=== PATIENT | female | born 1940 | race Caucasian/White ===

== ENCOUNTER 2016-06-17 12:13 | Inpatient (IN) | payer MEDICARE ==
[~2016-06-17] VITALS: Ht 167.6 cm; Wt 65.2 kg
[~2016-06-17 12:13] MED LIST: NOMED
--- NOTE | 2016-06-17 12:15 | ED.REPORT ---
HPI-Abd Pain F 40 and Over Date of Service Jun 17, 2016 ED Provider: History of Present Illness: lives at [facility] has dementia. Has been living on the independent side. Family is with her in the ER. Sent because of abd pain? observed holding right side. Unable to get hx from patient Nursing Notes Stated Complaint: ABDOMINAL PAIN Nursing Notes Reviewed: Yes Allergies: Coded Allergies: Sulfa (Sulfonamide Antibiotics) (Verified Allergy, Severe, hives upper body and face, 06/17/16) acetaminophen (Verified Allergy, Severe, 06/17/16) levofloxacin (Verified Allergy, Severe, mouth swelling, 06/17/16) quinidine (Verified Allergy, Intermediate, Hives, 06/17/16) Miscellaneous Medications No Historical Medication (No Historical Medication) Ea General Time Seen by MD: 12:14 Chief Complaint Abdominal pain Hx Obtained From: EMS Sudden in Onset?: No Past Medical History Past Medical History family denies breathing issues Denies: Asthma, Diabetes mellitus Review of Systems Basic Review of Systems Eyes: Vision NL, No discharge Skin: No bruising, No rash, No itch Psychiatric: Normal thought content Physical Exam Vital Signs Vital Signs (First) Date Time Temp Pulse Resp B/P Pulse Ox O2 Delivery O2 Flow Rate FiO2 06/17/16 12:37 36.2 98 22 144/88 90 Room Air Initial VS: Reviewed, Vital signs abnormal Head / Eyes: Atraumatic, Normocephalic, PERRL ENT: Mucous membranes moist, Conjunctiva normal, No scleral icterus Neck: Supple, Non-tender, Full range of motion Lymphatic: No lymphadenopathy Extremities: Vascular intact, Neuro intact, No swelling, No tenderness Skin: Warm, Dry, No cyanosis Neurologic: Alert, Oriented, Nonfocal Psychiatric: Mood/affect normal, Behavior normal, Normal thought content General/Constitutional: Awake, Alert, Well developed, Well hydrated, Well nourished, Cooperative, Not toxic appearing Appearance / Presentation: Positive: Frail Respiratory / Chest: Atraumatic, Breath sounds NL, Breath sounds = bilat, No respiratory distress Cardiovascular: Heart rate NL, Regular rhythm, Heart sounds NL, No gallop, No murmurs, No rubs, Cap refill not delayed Abdomen: Atraumatic, Soft, Non-tender, McBurney's non-tender Back: Atraumatic, Inspection NL, Full range of motion, Painless range of motion Interpretation & Diagnostics Interpretation & Diagnostics: x-ray shows bilateral ground glass, right greater than left Lab Results Interpretation Result Diagram: 06/17/16 1240 06/17/16 1240 Test 06/17/16 12:39 06/17/16 12:40 Urine Color Yellow (YELLOW) Urine Appearance Cloudy (CLEAR,HAZY) Urine pH 6.0 (5.0-8.0) Urine Specific [place] 1.020 (1.003-1.035) Urine Protein 300mg/dL (NEG,TRACE) Urine Glucose (UA) Negativemg/dL (NEGATIVE) Urine Ketones Negativemg/dL (NEGATIVE) Urine Occult Blood Large (NEGATIVE) Urine Nitrite Negative (NEGATIVE) Urine Bilirubin Negative (NEGATIVE) Urine Urobilinogen Normalmg/dL (NORMAL) Urine Leukocyte Esterase Large (NEGATIVE) Urine RBC 0-2/hpf (0-2) Urine WBC Packed/hpf (0-5) Urine Epithelial Cells Few/hpf (NONE-MOD) Urine Crystals None seen (NONE SEEN) Urine Bacteria Many/hpf (NONE-FEW) Urine Hyaline Casts None/lpf (NONE) Urine Granular Casts None seen (NONE SEEN) Urine Waxy Casts None seen (NONE SEEN) Urine Red Blood Cell Casts None seen (NONE SEEN) Urine White Blood Cell Casts None seen (NONE SEEN) Urine Mucus None seen (None Seen) Urine Trichomonas None seen (NONE SEEN) Urine Yeast None (NONE SEEN) Urinalysis Comment None Urine Culture Reflexed Indicated White Blood Count 18.3th/mm3 (3.8-10.1) Red Blood Count 4.75mil/mm3 (3.90-5.20) Hemoglobin 12.4g/dL (12.0-15.6) Hematocrit 38.0% (35.0-46.0) Mean Corpuscular Volume 80.0fL (81-100) Mean Corpuscular Hemoglobin 26.1pg (27.0-35.0) Mean Corpuscular Hemoglobin Concent 32.6% (32.0-37.0) Red Cell Distribution Width 14.0% (12.3-15.4) Platelet Count 267bil/L (150-400) Neutrophils (%) (Auto) 92.8% (40-74) Lymphocytes (%) (Auto) 2.6% (14-46) Monocytes (%) (Auto) 4.0% (4-12) Eosinophils (%) (Auto) 0% (0-5) Basophils (%) (Auto) 0.2% (0-3) Sodium Level 133mEq/L (134-144) Potassium Level 4.3mEq/L (3.5-5.2) Chloride Level 96mEq/L (97-108) Carbon Dioxide Level 20mmol/L (18-29) Blood Urea Nitrogen 21mg/dL (8-27) Creatinine 1.48mg/dL (0.57-1.00) Estimat Glomerular Filtration Rate 49mL/min (>59) Glucose Level 238mg/dL (60-99) Calcium Level 9.3mg/dL (8.5-10.1) Total Bilirubin 0.8mg/dL (0.0-1.2) Aspartate Amino Transf (AST/SGOT) 145U/L (0-50) Alanine Aminotransferase (ALT/SGPT) 37U/L (0-32) Alkaline Phosphatase 128U/L (25-165) Total Protein 7.7g/dL (6.4-8.4) Albumin 3.6g/dL (3.4-5.0) Lab Results Interpretation: urine indicates infection also Re-Eval/Medical Decision Med Decision/Clinical Course 75 year old female presents for evualation of change in behavior. Acute abd series show pneumonia and urine indicates a bladder infection. Awaiting word from POA to see if we can treat, yes she can be treated. No sign of any hernia or peritonotis Discharge & Departure Primary Impression: Pneumonia Additional Impression: UTI (urinary tract infection) Disposition: ADMITTED TO HOSPITAL Referrals: Dayanara Garcia (PCP) EDSupervising Provider for APC: Jhonatan Nguyen MD copies to: Dayanara Garcia Sue ARNP Jun 17, 2016 12:15
[2016-06-17] MEDS ORDERED: 0.9% Sodium Chloride 1,000 ML IV ONE (12:30)
[2016-06-17] MEDS ORDERED: Ketorolac 15 mg/mL Inj IVPUSH ONE (12:30)
[2016-06-17 12:37] VITALS: BP 144/88; PULSE 98; RESP 22; O2SAT 90
[2016-06-17 12:50] LABS: BASOPHILS % (AUTO) 0.2 % (0-3); EOSINOPHILS % (AUTO) 0 % (0-5); Mean Corpuscular Hemoglobin 26.1 pg (27.0-35.0); NEUTROPHILS % (AUTO) 92.8 % (40-74); Platelet Count 267 bil/L (150-400)
[2016-06-17 13:43] LABS: APPEARANCE,URINE CLOUDY (CLEAR,HAZY); COLOR,URINE YELLOW (YELLOW)
[2016-06-17 13:44] LABS: OCCULT BLOOD,URINE LARGE (NEGATIVE); UROBILINOGEN,URINE NORMAL (NORMAL)
[2016-06-17] MEDS ORDERED: cefTRIAXone Inj 1,000 MG in Dextrose 5% Minibag Plus 50 ML IV ONE (14:55)
[2016-06-17] MEDS ORDERED: Azithromycin Inj 500 MG in Dextrose 5% w/Vial Mate 250 ML IV ONE (14:55)
[2016-06-17] MEDS ORDERED: Ondansetron 2 mg/mL 2 mL Inj IVPUSH ONE (15:25)
[2016-06-17] MEDS ORDERED: Albuterol 2.5 mg/3 mL Inhalation Solution NEB PRN (16:10)
[2016-06-17] MEDS ORDERED: Polyethylene Glycol (PEG) 17 Gm Powder PO PRN (16:10)
[2016-06-17] MEDS ORDERED: Alum-Mag Hydrox-Simeth 30 mL Suspension PO PRN (16:10)
[2016-06-17] MEDS ORDERED: Insulin GLARgine 100 Unit/mL Syringe SUBQ ONE (16:15)
[2016-06-17] MEDS ORDERED: Glucose 40% Oral Gel 15 Gm Tube PO PRN (16:15)
[2016-06-17 17:09] VITALS: BP 102/59; PULSE 90; RESP 20; O2SAT 90
--- NOTE | 2016-06-17 17:15 | NUR ---
Admit Pt comes from ER in pain upper right quadrant. Pt moaning in pain MD aware. IV ABx running at this time. A&OX3. Confused at times and forgetful. Family at bedside. O2 NC 1-2L in ER. Plan to use CPOx to monitor oxygen. Care continues
[2016-06-17 17:29] VITALS: BP 101/67; PULSE 91; RESP 20; O2SAT 88
[2016-06-17] MEDS: 0.9% Sodium Chloride 1,000 ML IV SCH (17:32)
[2016-06-17] MEDS ORDERED: 0.9% Sodium Chloride 500 ML IV SCH (17:36)
[2016-06-17] MEDS: HYDROmorphone 0.5 mg/0.5 mL iSecure Syringe IVPUSH PRN ×2 (17:55→23:18)
[2016-06-17] MEDS: Insulin LISPRO 300 Unit/3 mL Inj SUBQ SCH ×2 (18:05→23:09)
[2016-06-17 18:32] VITALS: O2SAT 91
--- NOTE | 2016-06-17 18:57 | HP ---
[address] [address] HISTORY AND PHYSICAL PATIENT: JT JACINTO : 1940 MR#: [id number] ADMIT: 06/17/2016 JOB ID: [id number] PRIMARY CARE PROVIDER: JULIA Shields, soon to see Dr. Jed Carrillo. Patient admitted from ED, inpatient status, Blue Team. CHIEF COMPLAINT: Right upper quadrant pain, weakness, and cough. HISTORY OF PRESENT ILLNESS: This is a 75-year-old female who refuses all medications. She has dementia. She has been doing pretty well. Today, at [facility], patient was noted to be holding onto the wall and seemed to be kind of holding her stomach, seemed to be stumbling, seemed to be weak. Nurses took her blood pressure. It was 220/120, so they called 911 to the ED. Our ED physician called me and wants me to admit patient for urinary tract infection and pneumonia. UA is abnormal. I cannot elicit any symptoms from patient, however, but she is not reliable. She has had cough more than usual and does sound somewhat congested to family. Chest x-ray is read as pneumonia versus failure versus chronic interstitial changes. White count is 18 with a shift. Blood sugars 238. Creatinine is 1.48. Otherwise, patient has been doing pretty well. There have been no reports of diarrhea, fevers, chest pain, etc. COMPLETE REVIEW OF SYSTEMS: Complete review of systems obtained, pertinent positives in HPI above. Rest of review of systems are negative. PAST MEDICAL HISTORY: 1. Coronary artery disease, always treated medically. No interventions. 2. Hypertension. 3. Type 2 diabetes. 4. Cholecystectomy 2011. 5. Dementia. 6. History of colon polyps. MEDICATIONS: Patient has been refusing to take any medications for a while now. ALLERGIES: 1. SULFA. 2. TYLENOL. SOCIAL HISTORY: Lives at [facility], unassisted. Does not smoke. Consumes no alcohol. FAMILY HISTORY: Father of pneumonia. Mother had an ME at age 48. PHYSICAL EXAMINATION: This is a demented lady who is resting comfortably. Temperature 36.2, pulse 98, respiratory rate 22, blood pressure 144/88, O2 sats 98% on room air. Skin: Warm and dry. Mouth shows slightly poor hydration. Eyes: PERRLA. EOMs intact. Neck is supple. No JVD. Cardiac: Regular, with a systolic murmur. Lungs are coarse bilaterally with bilateral crackles. Abdomen has right upper quadrant discomfort to palpation, but otherwise is benign and soft. Extremities showed no edema. No CVA tenderness. No hypogastric tenderness. Cranial nerves are intact. I do not see any obvious focal neuro deficits. FINAL DIAGNOSES: 1. Right upper quadrant pain, present on admission. Active. The patient be started empirically on Rocephin, azithromycin for other causes below. Will keep her on clear liquids. Hydrate her and obtain an abdominal ultrasound. Will also get a lipase at this point in time and repeat a CMP tomorrow, noting the slightly elevated liver function tests. 2. Possible urinary tract infection present on admission. Active. Will start Rocephin and azithromycin. Cultures are pending. 3. Possible pneumonia, present on admission. Active. Azithromycin and Rocephin, respiratory virus PCR, sputum culture, blood cultures, and followup x-rays as needed. 4. Type 2 diabetes. Present on admission, uncontrolled. Will obtain hemoglobin A1c and provide correction dose insulin and diabetic diet. 5. Hypertension. Unless her blood pressure is neeru high, patient requires no treatment at this time. 6. Coronary artery disease. Again, patient has elected not to treat this with aspirin, statins, etc. 7. Chronic kidney disease, present on admission. Active. Baseline creatinine not known. Current creatinine 1.48. Will follow and review abdominal ultrasound. 8. Prior history of delirium in hospitals. Will start patient on Seroquel 6.25 bedtime. 9. Mild dehydration, 500 cc bolus, and NS at 100. 10. Goals of care. The patient initially did not want to come in the hospital. The patient's family understands the patient has significant dementia. The family has specifically asked me to admit patient, treat her conservatively with IV antibiotics, fluids and noninvasive diagnostic testing. If we have to restrain the patient a little bit to do this, that is okay. CODE STATUS: DNR, DNI status.
[2016-06-17 20:25] VITALS: PULSE 85; RESP 18; O2SAT 92
[2016-06-17] MEDS: Ondansetron 2 mg/mL 2 mL Inj IVPUSH PRN (23:30)
[2016-06-18] VITALS (8 sets, daily range): BP systolic 122–135; BP diastolic 74–88; PULSE 81–111; RESP 16–28; O2SAT 73–95
[2016-06-18] MEDS: 0.9% Sodium Chloride 1,000 ML IV SCH ×2 (03:48→15:31)
[2016-06-18] MEDS: HYDROmorphone 0.5 mg/0.5 mL iSecure Syringe IVPUSH PRN ×7 (04:32→21:53)
--- NOTE | 2016-06-18 05:08 | NUR ---
Mentation / pain / GI Pt has severe dementia, at times unable to cooperate with care; supportive family at bedside through night. Able to ambulate steadily but unable to understand situation which increases agitation. Intermittent pain well controlled with IV Dilaudid, pt becomes more agitated as pain increases; she will state that it hurts followed almost immediately that she is fine, calms down well after pain medication appears to provide comfort. One episode of sudden emesis, dark green; nausea resolved with Zofran. Infrequent bowel tones, passes small smear of stool. Frequent rounding for safety.
--- NOTE | 2016-06-18 05:29 | NUR ---
Respiratory O2 sats decreased but pt will not continue to wear oxygen nasal cannula. Will continue to replace and encourage as pt can tolerate.
--- NOTE | 2016-06-18 05:59 | DRSVH ---
PROCEDURE: X-RAY ACUTE ABDOMINAL SERIES ([id number]) INDICATIONS: abd pain TECHNIQUE: One view chest and two views of the abdomen were acquired. COMPARISON: None. FINDINGS: Surgical changes and devices: None. Chest: No focal consolidation however widespread ill-defined patchy groundglass opacities. Heart siz e is normal. No pleural effusions. No pneumoperitoneum. Abdomen: Bowel gas pattern is normal. No suspicious calcifications. Visualized solid organ contour s appear normal. Bones: No suspicious bony lesions. Lateral curvature of the spine IMPRESSION: Widespread bilateral patchy and groundglass opacities, which could represent chronic diffuse/intersti tial lung disease however the absence of comparison studies it would be difficult to exclude pulmonar y edema or atypical/viral infection. Therefore please correlate clinically. Dictated by: Ottoniel Alfred M.D. on 06/17/2016 at 13:31 Approved by: Ottoniel Alfred M.D. on 06/17/2016 at 13:34
[2016-06-18 06:32] LABS: BASOPHILS % (AUTO) 0.1 % (0-3); EOSINOPHILS % (AUTO) 0 % (0-5); MONOCYTES % (AUTO) 6.4 % (4-12); Mean Corpuscular Hemoglobin 25.9 pg (27.0-35.0); Mean Corpuscular Volume 80.9 fL (81-100); NEUTROPHILS % (AUTO) 85.9 % (40-74); Platelet Count 255 bil/L (150-400)
[2016-06-18] MEDS: Ondansetron 2 mg/mL 2 mL Inj IVPUSH PRN ×2 (06:35→21:52)
[2016-06-18] MEDS ORDERED: cefTRIAXone Inj 2,000 MG in Dextrose 5% Minibag Plus 50 ML IV SCH (08:30)
[2016-06-18] MEDS ORDERED: Azithromycin Inj 500 MG in Dextrose 5% w/Vial Mate 250 ML IV SCH (08:30)
[2016-06-18] MEDS: Insulin LISPRO 300 Unit/3 mL Inj SUBQ SCH ×4 (09:06→20:43)
--- NOTE | 2016-06-18 09:40 | DRSVH ---
PROCEDURE: US ABDOMEN INDICATIONS: ABD PAIN TECHNIQUE: Real-time scanning was performed of the abdominal and retroperitoneal organs, with image documentatio n. COMPARISON: [facility], CR, XR ABD ACUTE SERIES 3VW, 06/17/2016, 12:52. [facility], CT, ABDOMEN W&W/O CONTRAST, 11/06/2011, 16:25. [facility], CR, ERCP- BILIARY & PA NCREATIC, 11/09/2011, 16:00. [facility], US, ABDOMEN SONOGRAM, 11/10/2011, 15:21. FINDINGS: Liver length: 17.95 cm Gallbladder Wall Thickness: n.a CHD: 1.15 cm CBD: 1.14 cm Spleen length: 7.75 cm Right kidney length: 9.18 cm Left kidney length: 9.07 cm Aorta(Proximal): 1.98 cm Aorta(Mid): 2.12 cm Aorta(Distal): No visualized RCIA: Not visualized LCIA: Not visualized Liver: Liver is normal in size and homogeneous in echotexture. Gallbladder: Surgically removed Biliary ducts: Intrahepatic bile ducts are non-dilated. Extrahepatic bile duct caliber is dilated m easuring up to 11.5 cm. Normal is 6-7 mm or less in diameter, or 10 mm or less post-cholecystectomy . Pancreas: Visualized portions of the pancreas are sonographically normal. There is pancreatic duct d ilation measuring 6.7 mm. Spleen: Spleen is normal in size and homogeneous in echotexture. Kidneys: Kidneys are normal in size and echotexture. No hydronephrosis or nephrolithiasis. No donna d masses. Aorta: Visualized aorta is normal in caliber at less than 3 cm. Iliacs: Proximal common iliac arteries are obscured by overlying bowel gas. IVC: Intrahepatic inferior vena cava is patent. Miscellaneous: No free abdominal fluid. There is a small left pleural effusion. IMPRESSION: 1. Persistent prominent extrahepatic biliary duct measuring 11.5 cm. There is also pancreatic duct di lation measuring 6.7 mm. Recommend clinical correlation for biliary obstruction. If clinically indica jackson, MRCP is recommended for further evaluation. 2. Cholecystectomy. 3. Small left pleural effusion. Dictated by: Orlando Lowry M.D. on 06/18/2016 at 9:34 Approved by: Orlando Lowry M.D. on 06/18/2016 at 9:38
--- NOTE | 2016-06-18 11:21 | NUR ---
Pain/Mentation Morning Pain assessment reported R Upper quadrant abdominal pain at 8/10. Few minutes later pt reported that the pain was gone after changing position. No medication administered. Around 1100 pt family requested pain medication. Upon assessing pt, found pt was moaning and fidgeting in pain. Pt unable to report on pain at this time. Administered PRN IV Diluadid. Pain resolved as pt appears to be at ease and relaxed. Pt occasionally able to answer questions. Will give an appropriate answer, then a moment later make unrelated or confusing comment. Family reports this is not baseline. Family at bedside to assist with care and provide distraction.
--- NOTE | 2016-06-18 11:43 | NUR ---
Spoke with nurse at [facility] and patient is independent, this includes medications,bathing,eating and all ADLS.She paces and does not use any DME at base. But in the recent weeks has become increasing confused and states she does have dementia at base, has been needing consistent reminders to eat. She is eating cookies and is normally on a regular diet but has had a decline in appetite. Patient does not have any O2 needs at base. Nurse states they have started the conversation about getting patient to assisted living but nothing has changed yet. She let me know there are no beds in the memory care unit at this time. She is leaving message for Gena who is the supervisor commissary production and most likely patient will need bedside assessment before return. Waiting call back from Gena. Updated MEMS DEVICE SCIENTIST
--- NOTE | 2016-06-18 15:15 | NUR ---
Social Work -attempted initial assessment Pt is confused and not appropriate for assessment SW called daughter Madhavi [phone] to complete assessment. Left voicemail requesting call back. LYNN Mercado
--- NOTE | 2016-06-18 16:45 | PCM.PNMED ---
Subjective Date of Service Jun 18, 2016 Subjective pt denies any pain or discomfort. her daughters note that she was complaining of significant right sided abdominal pain just earlier Exam Vital Signs Vital Sign - Last Date Time Temp Pulse Resp B/P Pulse Ox O2 Delivery O2 Flow Rate FiO2 06/18/16 14:17 36.6 101 16 122/78 73 Room Air 06/17/16 18:32 2.00 Intake and Output 06/17/16 06/17/16 06/18/16 Cumulative From/Thru 15:00 23:00 07:00 06/17/16 12:37 - 06/18/16 06:31 Intake Total 500 ml 1560 ml 2060 ml Output Total 60 ml 300 ml 360 ml Balance -60 ml 500 ml 1260 ml 1700 ml Intake Oral 150 ml 150 ml IV Total 500 ml 1410 ml 1910 ml Output Urine Total 60 ml 200 ml 260 ml Emesis 100 ml 100 ml Exam pleasantly confused and disoriented x 3 General: Alert, Cooperative, No Acute Distress Head: Normal Eyes: Scleral Anicteric Nose: Mucous Membr Moist/[place] Mouth: Mucous Membr Moist/[place] Neck: Supple Chest & Lungs: Chest Wall Normal, Clear to auscultation & percussion Cardiovascular: Regular Rate/Rhythm Pulses: NL carotid, radial, femoral, DP, PT Abdomen: Non-tender, Non-distended, Normoactive bowel tones, Soft Extremities: No cyanosis/clubbing/edma bilat Neurological: Grossly Neurologically Intact, Normal Speech IVs and Medications Medications Reviewed: Medications were reviewed in detail Lab and Diagnostics Result Diagram: 06/18/1660406/18/16604 Additional Diagnostics Date of Service: 06/18/16 0901 PROCEDURE: US ABDOMEN IMPRESSION: 1. Persistent prominent extrahepatic biliary duct measuring 11.5 cm. There is also pancreatic duct dilation measuring 6.7 mm. Recommend clinical correlation for biliary obstruction. If clinically indicated, MRCP is recommended for further evaluation. 2. Cholecystectomy. 3. Small left pleural effusion. Dictated by: Orlando Lowry M.D. on 06/18/2016 at 9:34 Approved by: Orlando Lowry M.D. on 06/18/2016 at 9:38 Assessment & Plan 75 year-old female with history of advanced demential, Coronary artery disease, Hypertension, Type 2 diabetes, Cholecystectomy 2011 presenting with acute abdominal pain. # Acute right upper quadrant pain, present on admission. Active. - Abd U/S showing: " Persistent prominent extrahepatic biliary duct measuring 11.5 cm. There is also pancreatic duct dilation measuring" - was started empirically on Rocephin, azithromycin on admission - will change Abx to IV Zosyn for now - offered MRCP and GI Consult but patient's daughter/DPOA who is also a nurse does not want any further workup and notes that patient's wishes have been to be comfort care only. - Discussed in detail with her DPOA (abotu 30 minutes) and she plans to further discuss with the rest of her siblings regarding possible stopping of Abx as well. # Acute urinary tract infection, present on admission. Active. - Abx as noted above # Possible acute pneumonia vs chronic changes, present on admission. Active. - respiratory virus PCR negative, - f/u pending cultures - Abx as noted above # Type 2 diabetes. Present on admission, uncontrolled. - c/w ISS # History of Hypertension. stable - f/u # Coronary artery disease. - per admit notes patient has elected not to treat this # Chronic kidney disease, present on admission. Active. - Baseline creatinine not known. # Prior history of delirium in hospitals. stable. - c/w Seroquel 6.25 bedtime. # Goals of care - c/w Abx for now - no further invasive workup as per discussion with DPOA - palliative care consult in am Dispo: 1-2 days Time spent 40 min Brian Chao Jun 18, 2016 16:45
--- NOTE | 2016-06-18 16:50 | NUR ---
O2 needs Pt SpO2 in high 80's to high 90's while awake. When asleep/napping pt can desat down to mid 70's. CPOX monitoring in place. NC at 3L when sleeping as tolerated. Pt continues to pull off NC. Attempt to get blow-by O2. Pt family left for a break, Frequent rounding and bed alarm in place to maintain safety.
--- NOTE | 2016-06-18 16:52 | NUR ---
spiritual care: pt request pt pleasant, confused, described abd. pain, attended by 2 dtrs. pt engaged in prayer--reciting part of lords prayer and expressed gratitude.
[2016-06-19] VITALS (10 sets, daily range): BP systolic 143; BP diastolic 81; PULSE 93–105; RESP 16–22; O2SAT 81–95
[2016-06-19] MEDS: HYDROmorphone 0.5 mg/0.5 mL iSecure Syringe IVPUSH PRN ×4 (00:54→14:26)
[2016-06-19] MEDS: Piperacillin-Tazo 3.375 Gm Inj 3.375 GM in Dextrose 5% Minibag Plus 50 ML IV SCH ×2 (00:55→07:42)
--- NOTE | 2016-06-19 06:17 | NUR ---
Agitation/Pain/Nausea/SOB, O2 Titration/Low urine output Pt remains very confused,oriented self only,intermittent agitation, trying to strike nursing staff when staff helping reposition her,sitter with pt, frequently reorient pt,keep room quiet, gopal alarm on,check bladder:no urinary retention, offer oral fluids. Charge nurse Rafaela Mcgill aware, suggests no need call med at this time. Pt calm down and sleep after Dilaudid given for abdominal pain. Pt c/o Pt c/o abdominal pain, especially with activities, "hurt badly" at right mid abdomen, radiated to right upper quadrant, tenderness at this area, abdomen soft, BT active. Dilaudid 0.5mg prn x3, K-pad applied. Pain improved and pt settle down ands sleeping. Mild nausea at times, no vomitus, Zofran givenx1, nausea resolved. Some increased SOB at rest ,coarse lung sounds bilaterally, no wheezes or crackles, desat to 85 on O2 when agitated or with activities, titrate O 2 1-2.5l per Oxymask, keep SPO2 88-95% per RT recommendation. PEDIATRIC UROLOGIST monitoring, NEB called for tx,RT consider sob may cardiac related due to pt wt gain about 2.5 kg since admission 06/17, I>>O, low urine out put (only change briefx1,Bladder scan 337ml), Dr. morton notified above conditions at 0453, no order given. Sit pt high dukes position. SL after ABX completed. Pt SOB improved. Continue monitoring.
[2016-06-19] MEDS: Insulin LISPRO 300 Unit/3 mL Inj SUBQ SCH ×2 (08:03→12:00)
--- NOTE | 2016-06-19 11:35 | NUR ---
Palliative Care Palliative Care received verbal order from Dr Chao 06/19/16 to assist with goals of care. Patient is a 75 year old woman with dementia and CAD. She was admitted 06/17/16 for care of pneumonia and bladder infection. Family has expressed interest in comfort care. Daughter/DPOA is a nurse. Madhavi Kuhn (daughter/DPOA) [phone], Palliative Care to follow. Stacey Meyer
--- NOTE | 2016-06-19 11:51 | NUR ---
GREGG: Went into room and attempted to have conversation with patient. Friends were in room as well and directed me to ELYSSA Madhavi(Daughter). Patient has dementia at baseline and has been deteriorating. YARD SWITCHER will follow up with Madhavi as soon as possible.
--- NOTE | 2016-06-19 12:24 | NUR ---
Pain Patient is alert to self with intermittent confusion. Objective sign and symptoms of pain noted. Patient moaning and pointing to right side of her abdomen. PRN Dilaudid given as ordered with effective results. Very low appetite and decreased urine out put 175 cc so far. Encouraged PO hydration. Continuous on IV ABO as ordered. Stable oxygenation on 2L Nasal cannula r/t patient does not prefer Oxy mask. DPOA would like to speak to SS and notified SS. Blood sugar before breakfast and lunch 174, 156. Insulin given as ordered using sliding sale. Stable mood and no sign and symptoms of agitation noted. Patient up to BSC with no dyspnea or SOB. no sign and symptoms of cardiac distress noted. Sitter at bed side. [place] alarm for patient safety. Continue to monitor for pain, Oxygenation, pain, and safety.
--- NOTE | 2016-06-19 12:37 | NUR ---
Social Work-initial assessment: Data:See initial assessment. Pt is a 75 y/o female who was admitted on 06/17/16 for pneumonia. bladder infection, dementia per H&P. Pt's insurance is [employer] and PCP is Jed Lopez MD, although she has not met him yet. EMR Reviewed. Pt's readmission score is 1-no risk. AMY met with pt, daughter Madhavi [phone] to discuss discharge planning, SW role explained. Pt is confused and unable to communicate with SW. Pt's daughter states that to pt resides at [facility] unassisted and had been in the process of exploring hiring a private caregiver to assist pt. Pt has no HH history and SNF history with [facility]. They are unsure if [facility] would be there preference if SNF is needed again and would like to be provided choice list should SNF be the recommendation. Pt has completed DPOA/ advanced directive and it is on file with hospital. Pt has no nursing home care or VA benefits. Pt's family states that her condition has deteriorated recently and they recognize she needs a higher level of care. They are meeting with Palliative Care today to discuss plan of care. Pt's family to provide transport home at discharge. SW provided phone number and plan on white board in room. SW will continue to follow. Assessment:Pt who resides at [facility] and is requesting palliative care consult. Plan:Pt likely to discharge home with palliative care following. SW will continue to follow for needs. LYNN Mercado Addendum: 06/19/16 at 1400 by EMILY TUCKER Amended: Links added.
--- NOTE | 2016-06-19 13:49 | NUR ---
blood sugar Blood sugar 156 before lunch. Insulin held due to patient had only couple bites of meals.
[2016-06-19] MEDS ORDERED: Haloperidol 5 mg/mL Inj IVPUSH PRN (14:25)
[2016-06-19] MEDS ORDERED: HYDROmorphone 1 mg/mL Inj IVPUSH PRN ×2 (14:25→20:50)
--- NOTE | 2016-06-19 15:19 | NUR ---
Gave access and faxed facesheet to [facility] and [facility]. Called and spoke with Lisa inventory coordinator at [facility] she will review patient and if they can meet needs with start authorization tonight. [place] Private pay is second option and this would be with Hospice, Jess Treat deputy director of public works quoted 357.00 per day for pvt room and 319.00 per day for semi pvt. She also thinks they would be able to do two weeks at a time for end of life purposes. LYNN was present during conversation with patient's ELYSSA Hendrickson (Daughter)
--- NOTE | 2016-06-19 15:33 | NUR ---
Pain PRN Dilaudid given for abdominal pain as ordered with effective results amd PRN Haldol given as ordered for agitation and comfort. Family at bed side. Continue to monitor for pain, comfort and agitation. Palliative doctor Dr. Curry spoke to daughter DPOA and family. New orders for discontinue insulin sliding scale and IV ABO. Victoria alarm on for safety.
--- NOTE | 2016-06-19 16:47 | NUR ---
Palliative Care requested SW follow up with family regarding SNF options providing hospice care. Family stated there first choice as [facility] and their second Choice as [facility]. UR specialist sent referrals to both options. SW will follow up with family when SNF's respond. SW will continue to follow. LYNN Mercado
--- NOTE | 2016-06-19 17:51 | PCM.PNMED ---
Subjective Date of Service Jun 19, 2016 Subjective pt denies any pain or discomfort. Exam Vital Signs Vital Sign - Last Date Time Temp Pulse Resp B/P Pulse Ox O2 Delivery O2 Flow Rate FiO2 06/19/16 17:12 Supplement Oxygen 06/19/16 16:16 105 18 90 4.00 06/19/16 05:03 36.5 143/81 Intake and Output 06/18/16 06/18/16 06/19/16 Cumulative From/Thru 15:00 23:00 07:00 06/17/16 12:37 - 06/19/16 06:02 Intake Total 1538 ml 130 ml 3728 ml Output Total 360 ml Balance 1538 ml 130 ml 3368 ml Intake Oral 100 ml 50 ml 300 ml IV Total 1438 ml 80 ml 3428 ml Output Urine Total 260 ml Emesis 100 ml # Voids 1 2 3 # Bowel Movements 0 0 0 Exam pleasantly confused and disoriented x 3 General: Alert, Cooperative, No Acute Distress Head: Normal Eyes: Scleral Anicteric Nose: Mucous Membr Moist/[place] Mouth: Mucous Membr Moist/[place] Neck: Supple Chest & Lungs: Chest Wall Normal, Clear to auscultation bilat Cardiovascular: Regular Rate/Rhythm Pulses: NL carotid, radial, femoral, DP, PT Abdomen: Non-tender, Non-distended, Normoactive bowel tones, Soft Extremities: No cyanosis/clubbing/edema bilat Neurological: Grossly Neurologically Intact, Normal Speech IVs and Medications Medications Reviewed: Medications were reviewed in detail Lab and Diagnostics Result Diagram: 06/18/1660406/18/16 0605 Additional Diagnostics Date of Service: 06/18/16 0901 PROCEDURE: US ABDOMEN IMPRESSION: 1. Persistent prominent extrahepatic biliary duct measuring 11.5 cm. There is also pancreatic duct dilation measuring 6.7 mm. Recommend clinical correlation for biliary obstruction. If clinically indicated, MRCP is recommended for further evaluation. 2. Cholecystectomy. 3. Small left pleural effusion. Dictated by: Orlando Lowry M.D. on 06/18/2016 at 9:34 Approved by: Orlando Lowry M.D. on 06/18/2016 at 9:38 Assessment & Plan 75 year-old female with history of advanced demential, Coronary artery disease, Hypertension, Type 2 diabetes, Cholecystectomy 2011 presenting with acute abdominal pain. # Acute right upper quadrant pain, present on admission. Active. - Abd U/S showing: " Persistent prominent extrahepatic biliary duct measuring 11.5 cm. There is also pancreatic duct dilation measuring" - was started empirically on Rocephin, azithromycin on admission - changed Antibiotics to IV Zosyn for now - offered MRCP and GI Consult but patient's daughter/DPOA who is also a nurse does not want any further workup and notes that patient's wishes have been to be comfort care only. - Discussed in detail with her DPOA (on 06/18/16) and she plans to further discuss with the rest of her siblings regarding possible stopping of Abx as well. # Acute urinary tract infection, present on admission. Active. - Abx as noted above # Possible acute pneumonia vs chronic changes, present on admission. Active. - respiratory virus PCR negative, - f/u pending cultures - Abx as noted above # Type 2 diabetes. Present on admission, uncontrolled. - c/w ISS # History of Hypertension. stable - f/u # Coronary artery disease. - per admit notes patient has elected not to treat this # Chronic kidney disease, present on admission. Active. - Baseline creatinine not known. # Prior history of delirium in hospitals. stable. - c/w Seroquel 6.25 bedtime. # Goals of care - c/w Abx for now - no further invasive workup as per discussion with DPOA - palliative care consulted. will f/u w/ recs Dispo: 1-2 days pending goals of care VTE Mechanical Devices: Intermittant Pneumatic CD Resuscitation Status: DNR/DNI:Do Not Resuscitate/Intubate Brian Chao Jun 19, 2016 17:51
--- NOTE | 2016-06-19 18:38 | PCM.CONPAL ---
Date of Service Jun 19, 2016 Date of Hospital Admission: Jun 17, 2016 at 15:46 Date of Palliative Consult: Jun 19, 2016 Requesting Provider: Brian Chao Reason Palliative Care Consult: Goals of Care Discussion, Hospice Referral & Discussion Hospital Unit @time of consult: Medical/Pediatric Care Palliative Care Recommendation Summary of palliative recommendations: -Symptom management (Pain/other) Presumed intraabdominal process causing infection-etiology may be stone but family does not want intervention. Dementia with some agitation-goal is comfort Pain-evident with her furrowing her brow etc-meds ordered.Counselled family. Hx of ETOH-may have fair tolerance of meds. Nonessential meds d/filiberto. [facility]- comfort only Hospice referral placed via CM Madhavi requests hospice if she survives to be discharged --possibly to [facility]. CM notified. She was on the indep side of [place] -DPOA/Advanced Directives/POLST-DPOAHC is Madhavi. She has paperwork at her mother' s apt. POLST- will want to complete this to reflect DNR/comfort-she has one from 2014 with DNR/limited but with aim for comfort. -Family/emotional support-very strong cohesive family -Spiritual support-she has been seen by bat lathe operator. Problems: End of Life Preferences comfort care Disposition Hopefully will be able to get back to [place]. Resuscitation Status Resuscitation Status: DNR/DNI:Do Not Resuscitate/Intubate POLST Updates/Changes Artificially Admin Nutrition: No Artifical Nutrition by Tube POLST Discussed with: Health Care Agent (DPOAHC) . Advanced Care Planning Address: Comfort care Pain: Moderate Symptom management: Agitation, Pain, Delirium Pt History History of Present Illness PALLIATIVE CARE CONSULTATION: requesting provider:Dr. Alvarado Reason: [facility], sx management 75 yo patient who has been at [facility] on the unassisted side with the help of her daughter Mary for a few years. She has had a rather rapid decline in her mentation and physical health in the past 3 months. Her hx is gleaned from charts and from her 2 daughters Mary and Madhavi. Patient with long hx of ETOH abuse with cessation of drinking for about 15 yrs starting 23 yrs ago. Family started noticing memory problems about 15 yrs ago, preventing her from driving 10 yrs ago because she would get lost. She needed more assistance and had been living with Mary but over the past 5 yrs became more verbally abusive. They moved her into [place] still with Mary assisting but also having caregivers for bath assist etc. She has progressively deteriorated, declining showers, cleaning self, giving clothes away to the point she has none left for changing etc. She has had RUQ abdominal pain for years- had a lap don in 2011 with note of cirrhotic liver and continued to complain of abd pain since. She had a worsening of this pain which prompted her hospitalization. She has refused most interventions up until now and has asked her daughter to "just let me go". She has a POLST completed DNR. She was started on IV fluids and antibiotics but with the question of possible choledocolithiasis-the family requested no further treatment. She has numbers looking like worsening infection -WBC 18K increasing procalcitonin and CR starting at 1.48 and now 1.79. Family asking for assistance to review GOC Past Medical History Significant PMH Noted: Anx-Depression CAD DM2 Lumbar stenosis HTN lap don 2011 Social History Occupation: retired, caregiver/homemaker Family Members Issues: 4 children- Madhavi, Mary, Zhou and Laron Social Support: primarily Mary daughter Living Situation: [place] Spiritual Support Spiritual Support believes in God but not yarsani Responsive Patient Symptoms Nausea: Moderate Anorexia: Moderate Shortness of Breath: Mild Delirium agitation Palliative Performance Scale PPS Patient Status: Baseline PPS Ambulation: Full PPS Activity: Unable to do any work PPS Self-Care: Occasional assistance necessary PPS Intake: Normal or reduced PPS Conscious Level: Full or drowsey, +/- confusion Performance Scale: 20% Allergy Allergies Reviewed: Yes Medications Current Medications: Current Medications Ceftriaxone Sodium 2000 mg/ Dextrose/Water 50 ml @ 100 mls/hr Q24 IV Last administered on 06/18/16 09:06; Admin Dose 100 MLS/HR; Start 06/18/16 at 08:30 ; Stop 06/18/16 at 17:01; Status DC Azithromycin/ Dextrose/Water 250 ml @ 250 mls/hr Q24 IV Last administered on 10:17; Admin Dose 250 MLS/HR; Start 06/18/16 at 08:30; Stop 06/18/16 at 17:01; Status DC Quetiapine Fumarate 6.25 mg HS PO Last administered on 06/18/16 20:30; Admin Dose 6.25 MG; Start 06/17/16 at 21:00 Ondansetron HCl 4 mg 4 mg Q4H PRN IVPUSH Last administered on 06/18/16 21:52; Admin Dose 4 MG; Start 06/17/16 at 23:30 Piperacillin Sod/ Tazobactam Sod/ Dextrose/Water 50 ml @ 12.5 mls/hr Q8 IV Last administered on 06/19/16 07:42; Admin Dose 12.5 MLS/HR; Start 06/19/16 at 00:30; Stop 06/19/16 at 14:29; Status DC Haloperidol Lactate for comfort med Q4H PRN IVPUSH Last administered on 15:28; Admin Dose 1 MG; Start 06/19/16 at 14:25 Hydromorphone HCl comfort med Q4H PRN IVPUSH; Start 06/19/16 at 14:25 No Active Prescriptions or Reported Meds Objective Findings Exam Vital Sign - Last Date Time Temp Pulse Resp B/P Pulse Ox O2 Delivery O2 Flow Rate FiO2 06/19/16 17:12 Supplement Oxygen 06/19/16 16:16 105 18 90 4.00 06/19/16 05:03 36.5 143/81 Intake and Output 06/18/16 06/18/16 06/19/16 Cumulative From/Thru 15:00 23:00 07:00 06/17/16 12:37 - 06/19/16 06:02 Intake Total 1538 ml 130 ml 3728 ml Output Total 360 ml Balance 1538 ml 130 ml 3368 ml Intake Oral 100 ml 50 ml 300 ml IV Total 1438 ml 80 ml 3428 ml Output Urine Total 260 ml Emesis 100 ml # Voids 1 2 3 # Bowel Movements 0 0 0 General: Minimally responsive HEENT: EOMI, Scleral Anicteric, Mucous Membranes Dry Heart: Tachycardia Lungs: Diminished Abdomen: Tenderness to Palpation (diffusely tender but more so L upper and lower), Distended, Other Neuro: Other (mostly asleep but when awake and agitated she can prop herself up ) Lab/Diagnostics Lab and Imaging results reviewed in detail in EMR. Patient/Family Conference Members Present Family Members Present Madhavi and Emmett Medical Team Members Present? [facility] Discussion/Goals of Care Discussion FAMILY UNDERSTANDING OF DISEASE: Madhavi is an RN by training and is the spokesperson. She also has DPOAHC.. She states the 4 children are all in agreement that goal is comfort and that they would like withdrawal of noncomfort treatments and meds. She states they feels they are speaking for their mother in her wish to just let her go. They identify her last 3-6 months or more as poor QOL. They understand the rationale of stopping IVs etc. DISEASE PROGRESSION/EVIDENCE OF DECLINE: SYMPTOM BURDEN: GOALS: Comfort for EOL HOPES/WORRIES: Mary having been her caregiver is the one who is having the harder time knowing she will feel relief and that causes her a sense of guilt. She has insight into this and her sister is very supportive of her. Time spent Total time 50 minutes; >50% face to face with patient and/or family, providing counselling regarding plans and recommendations, and in care coordination with his/her medical teams. I also spent an additional 25 minutes counseling for advanced care planning with the patient/the patients family/the surrogate decision maker. copies to: Jed Carrillo Deborah A MD Jun 19, 2016 18:38
[2016-06-20 03:13] VITALS: BP 154/96; PULSE 97; RESP 14; O2SAT 93
--- NOTE | 2016-06-20 07:23 | NUR ---
Pain/confusion Pt was in quite a bit of pain at beginning of shift, complaining of side pain and holding her right side. Md was consulted and ordered increase dose of pain medication. Medication administered with good relief of pain. Pt also confused and some of what she said is non-sensical to situation.
--- NOTE | 2016-06-20 10:43 | NUR ---
LOC Patient alert and confused. Patient was restless this morning repeatedly removing oxygen. Patient was explained she needed the oxygen on. Patient refused for nurse to listen to lungs. Patient was talking gibberish and not making sense this morning. Patient would say she needed to void and when staff went to assist patient to use BSC and patient refused saying she did not have to void. Patient continues to have 1:1 sitter at bedside for safety.
--- NOTE | 2016-06-20 10:53 | PCM.PALLBR ---
Palliative Care Recommendation Summary of palliative recommendations: Counseling: Today Dr. George counseled daughters Mary and Madhavi on the following : right now she is in a very calm pleasant state with minimal pain. Hopefully, she will continue without pain. 1. In my clinical opinion, pt may in 2-3 days, and I would not be surprised if she sooner. However, she is still drinking sips of water, has no apnea (which I explained to family), has no mottling, and this argues against a overnight. I think she would likely do well if transferred to another location outside the hospital. The transferring process might be a little disruptive for her, but I think she would likely settle in at the new location quickly. 2. I suspect pt is quietly, calmly hallucinating--which does not need medical intervention until she were to become agitated or frightened of what she sees. For hallucinations that are frightening: start 1mg Haldol intensol liquid po q 3 hours as needed. 3. For pain: start oxycodone concentrated liquid 5mg po q 3 hours as needed. 4. The haldol can also be used for agitation not related to hallucinations or for nausea or vomiting. 5. Dr. George signed a comfort order set to remove meds not essential for her care, stop labs, and stop other interventions that might disturb her rest or comfort. Family seems to understand this counseling and is interested in a possible transfer. Dr. George asked Ms. Stern, our licensed master social worker, to communicate this to case management. Goals: Presumed intraabdominal process causing infection-etiology may be stone, but family does not want intervention. They want comfort care Per Dr Curry's 06/19 note: Daughter Madhavi requested hospice if she survives to be discharged --possibly to [facility]. CM notified. Patient was on the indep side of [place] DPOA/Advanced Directives/POLST-DPOAHC is Madhavi. She has paperwork at her mother's apt. POLST- will want to complete this to reflect DNR/comfort-she has one dated 2013 with DNR/limited but with aim for comfort. Family/emotional support-very strong cohesive family Spiritual support-she has been seen by sheet layer. Problems: End of Life Preferences comfort care Disposition Hopefully will be able to get back to [place]. Resuscitation Status Resuscitation Status: DNR/DNI:Do Not Resuscitate/Intubate POLST Updates/Changes Artificially Admin Nutrition: No Artifical Nutrition by Tube POLST Discussed with: Health Care Agent (DPOAHC) . Advanced Care Planning Address: POLST, Comfort care Pain: Mild Symptom management: Delirium Total time 35 minutes; >50% face to face with patient and/or family, providing counselling regarding plans and recommendations, and in care coordination with his/her medical teams. I also spent an additional 30 minutes counseling for advanced care planning with the patient/the patients family/the surrogate decision maker. Palliative Brief Note Date of Service Jun 20, 2016 . Palliative Care Consult requested by: Dr. Alvarado Reason: GOC, sx management Patient Identification: Mrs. Cisse is a 75 yo patient admitted for acute on chronic abdominal pain on 06/17. The patient has been at [place] on the unassisted side with the help of her daughter Mary for a few years. She has had a rather rapid decline in her mentation and physical health in the past 3 months. Her hx is gleaned from charts and from her 2 daughters Mary and Madhavi. Past medical history: Significant for a long hx of ETOH abuse with cessation of drinking for about 23 yrs ago. Family started noticing memory problems about 15 yrs ago, preventing her from driving 10 yrs ago because she would get lost. She needed more assistance and had been living with Mary but over the past 5 yrs became more verbally abusive. They moved her into [place] with Mary assisting but also having caregivers for bath assist etc. She has progressively deteriorated, declining showers, cleaning self, giving clothes away to the point she has none left for changing etc. She has had RUQ abdominal pain for years; and had a lap don in 2011 with note of cirrhotic liver and continued to complain of abd pain since. Hospital Course: She refused most interventions up until this admission. She has had serum tests suggestive of worsening infection-WBC 18K increasing procalcitonin and CR starting at 1.48 and now 1.79. She was started on IVFs and antibiotics for question of choledocolithiasis, but subsequently has asked her daughter to "just let me go". She has a POLST completed DNR. During discussion with Dr. Curry 06/19, the family requested no further antibiotic treatment. Dr. George is following up today and has been asked to assess and possibly start comfort care order set for patient. Family would like her to be comfortable and pt was able to state 06/[address] Curry that she would like hospice, if she survives to be discharged. On rounding today, the patient was sleeping quietly, breathing regularly, and woke up spontaneously while Dr. George interviewed daughters Mary and Madhavi. On exam: She is somewhat confused, but speaks in full sentences (words are sometimes slurred) and asks for water. She drinks through a straw, while daughter holds the glass. She does not choke from the drinking. General Appearance: thin, white hair, pale, calm and inattentive, but will respond to gentle, simple questions. HEENT: normal head and neck, pupils pinpoint, seems to be listening to others and looking around the room at something higher on wolf and sides of room ( actively hallucinating) while Dr. George and daughters observe her. Still able to answer some questions as she does this. She reports to us that she is going to be with Kyle tomorrow (Kyle is her who has ). Daughters report that she is also talking to her mother ( who when patient was 13 years old). Lungs: clear Heart: S1, S2, rrr, no murmur appreciated Abdomen: soft, distended, active bowel sounds in all 4 quadrants, slight tenderness over epigastric area (pt winces slightly, but does not cry out, almost seems to ignore my examination hand as she looks around the room) Extremities: no edema, dry, no mottling observed. Jammie George MD Jun 20, 2016 10:53
--- NOTE | 2016-06-20 11:03 | NUR ---
[facility] can accept patient with pending authorization. Spoke with [facility] and he is starting the authorization. They would need to have all medications to PO. [facility] can also accept patient and this would be private pay with [facility]osp[facility] Updated POST TENSIONING IRONWORKER
[2016-06-20] MEDS ORDERED: Artificial Tears 15 mL Ophthalmic Solution AFFECT_EYE PRN (11:15)
[2016-06-20] MEDS ORDERED: Haloperidol 2 mg/mL 5 mL Oral Conc Liquid PO PRN (11:15)
[2016-06-20] MEDS ORDERED: oxyCODONE 20 mg/mL Oral Concentration PO PRN ×3 (11:20→16:45)
--- NOTE | 2016-06-20 12:10 | NUR ---
Palliative care note D/A: Case discussed in PC and dispo rounds. Discussed with Mary BAILEY and Eran from . They indicate that family has preference for [facility]-where pt would be able to go as skilled under comfort care and/or JS-pvt pay with [facility]. Eran has left message for staff at [facility]. Family has indicated that they do not want [facility] info visit with but have also indicated to Dr. George that they believe that they had an info visit on 06/19/16. Phone call to Selena at [facility] reveals that family has not had info visit. Case discussed with PC provider. P: Palliative care to follow. Nai ZENDEJAS, CCM
[2016-06-20 13:44] VITALS: BP 144/104; PULSE 98; RESP 24; O2SAT 80
--- NOTE | 2016-06-20 14:49 | PCM.PNMED ---
Subjective Date of Service Jun 20, 2016 Subjective pt denies any pain or discomfort. Exam Vital Signs Vital Sign - Last Date Time Temp Pulse Resp B/P Pulse Ox O2 Delivery O2 Flow Rate FiO2 06/20/16 13:44 37.1 98 24 144/104 80 Room Air 06/20/16 03:13 4.00 Intake and Output 06/19/16 06/19/16 06/20/16 Cumulative From/Thru 15:00 23:00 07:00 06/17/16 12:37 - 06/20/16 06:19 Intake Total 62 ml 400 ml 4190 ml Output Total 525 ml 400 ml 1285 ml Balance 62 ml -525 ml 0 ml 2905 ml Intake Oral 400 ml 700 ml IV Total 62 ml 3490 ml Output Urine Total 525 ml 400 ml 1185 ml Emesis 100 ml # Voids 3 # Bowel Movements 0 0 0 Exam pleasantly confused and disoriented x 3 General: Alert, Cooperative, No Acute Distress Head: Normal Eyes: Scleral Anicteric Nose: Mucous Membr Moist/[place] Mouth: Mucous Membr Moist/[place] Full exam deferred due to patient being comfort care only now. IVs and Medications Medications Reviewed: Medications were reviewed in detail Lab and Diagnostics Result Diagram: 06/18/1660406/18/16 06 Additional Diagnostics Date of Service: 06/18/16 0901 PROCEDURE: US ABDOMEN IMPRESSION: 1. Persistent prominent extrahepatic biliary duct measuring 11.5 cm. There is also pancreatic duct dilation measuring 6.7 mm. Recommend clinical correlation for biliary obstruction. If clinically indicated, MRCP is recommended for further evaluation. 2. Cholecystectomy. 3. Small left pleural effusion. Dictated by: Orlando Lowry M.D. on 06/18/2016 at 9:34 Approved by: Orlando Lowry M.D. on 06/18/2016 at 9:38 Assessment & Plan 75 year-old female with history of advanced demential, Coronary artery disease, Hypertension, Type 2 diabetes, Cholecystectomy 2011 presenting with acute abdominal pain. # Acute right upper quadrant pain, present on admission. Resolved - Abd U/S showing: " Persistent prominent extrahepatic biliary duct measuring 11.5 cm. There is also pancreatic duct dilation measuring" - was started empirically on Rocephin, azithromycin on admission - changed Antibiotics to IV Zosyn but then stopped on 06/19/16 per palliative care and discussion with patient's family and DPOA. - offered MRCP and GI Consult but patient's daughter/DPOA who is also a nurse does not want any further workup and notes that patient's wishes have been to be comfort care only. # Acute urinary tract infection, present on admission. Active. - Abx as noted above # Possible acute pneumonia vs chronic changes, present on admission. Active. - respiratory virus PCR negative, - currently having acute hypoxic respiratory failure, not present on admission. # Type 2 diabetes. Present on admission, uncontrolled. - continue with supportive care # History of Hypertension. stable # Coronary artery disease. - per admit notes patient has elected not to treat this # Chronic kidney disease, present on admission. Active. - Baseline creatinine not known. # Prior history of delirium in hospitals. stable. - continue with Seroquel # Goals of care - appreciate palliative care consult. will followup with recommendations. - patient transitioning to comfort care only Dispo: 1-2 days pending patient's clinical course as she transitions to comfort care only and off of further antibiotic treatment. VTE Mechanical Devices: Intermittant Pneumatic CD Resuscitation Status: DNR/DNI:Do Not Resuscitate/Intubate Brian Chao Jun 20, 2016 14:49
--- NOTE | 2016-06-20 15:47 | NUR ---
spiritual care: follow up conversation with pt's dtr chepe as she reflected on process, mother's condition, grateful, reflective tone. Addendum: 06/20/16 at 1719 by NIRAJ MILLER CM provided written resources as family gathers around pt.
[2016-06-20] MEDS: oxyCODONE 20 mg/mL Oral Concentration PO PRN ×2 (17:01→20:42)
[2016-06-21] MEDS: oxyCODONE 20 mg/mL Oral Concentration PO PRN ×2 (02:49→05:49)
--- NOTE | 2016-06-21 09:09 | NUR ---
Spoke with Zia at [facility] and he sent updated clinicals to [facility] this morning and is expecting to have answer today whether patient is authorized or not.
--- NOTE | 2016-06-21 09:11 | NUR ---
Palliative care note D/A: Case discussed in PC rounds. CM pursuing either [facility] on skilled path with [facility] or [facility] pvt pay with [facility] under Medicare benefit. Phone call to Selena at [facility] to determine ability to provide info visit, if needed. Larissa is back at [facility]. Possible availability today at 1300 for info visit. Selena to discuss with her team and call this worker with potential availability for today and tomorrow ( 06/21/16 and 06/22/16). She is also penciling pt in for open visit on Saturday06/24/16 as earliest available open, if needed. This worker to cancel above if pt is approved for [facility] on skilled comfort care path. P: Palliative care to follow as needed. Nai GORDILLOSW, [facility] Addendum: 06/21/16 at 1531 by TERRY STEELE PC note amendment Case discussed this am with PC team. Dr. George feels that pt could be transferred from hospital. Also discussed with Mary BAILEY who notes that [facility] has declined for skilled comfort care. Discuss with Selena at [facility] who is able to arrange for 1300 info visit for today. Discuss with pt kiki Hendrickson who agrees. Discuss again with Larissa from [facility] who notes that family has signed on to [facility]. Per Mary, understand that family is wishing for consideration of dc to either [facility], private pay or return to [place], both with W. Dr. George has indicated that pt could dc prior to day of [facility] open. Have left message for Mary BAILEY dcp that pt family has elected to sign on to [facility]. P: Palliative care to follow. Nai ZENDEJAS CCM Addendum: 06/21/16 at 1547 by TERRY STEELE Palliative care note D/A: Phone call from Selena at [facility]. She asks for this worker to communicate if [place] accepts pt as will need to arrange for equipment delivery. Case discussed with Mary who does not have an answer yet from [facility]. This worker attempts to discuss with family but they are not in the room currently. Ms left for Mary. P: Palliative care to follow. Nai ZENDEJAS [facility]
--- NOTE | 2016-06-21 09:12 | NUR ---
GREGG: Spoke with ENGINEERING SYSTEMS ANALYST and she will follow up via phone with daughter Madhavi who is the DPOA
[2016-06-21] MEDS ORDERED: oxyCODONE 20 mg/mL Oral Concentration PO PRN (10:00)
--- NOTE | 2016-06-21 10:29 | PCM.PALLBR ---
Palliative Care Recommendation Summary of palliative recommendations: Assessment: Patient is likely going to within a week or so, but has not entered a phase of "actively dying." She is still conscious, somewhat verbal. Apparently drank liquids this morning, as these are on her bedside table and look fresh. 1. In my clinical opinion, pt may in a week or so, and I would not be surprised if she sooner. However, she is still drinking sips of water, has no apnea, has no mottling, and this argues against a in the next 48 hours. I think she would likely do well if transferred to another location outside the hospital. The transferring process might be a little disruptive for her, but I think she would likely settle in at the new location quickly. 2. On 06/20, I observed that she was quietly, calmly hallucinating--which does not need medical intervention until she were to become agitated or frightened of what she sees. For hallucinations that are frightening: start 1mg Haldol intensol liquid po q 3 hours as needed. 3. For pain: start oxycodone concentrated liquid 5-10 mg po q 1 hour as needed. 5mg for mild to moderate pain/10mg for severe pain. Because pt likely to go to a facility, I am adding scheduled 5mg q 6 hours around the clock, so pt's pain will be assessed by nursing team q 6 hours. 4. The haldol can also be used for agitation not related to hallucinations or for nausea or vomiting. 5. Continue comfort care as ordered. 06/21: No family in room. I have spoken to Attending Dr. Chao and CM at discharge rounds today to give my assessment. I believe she can be safely transferred out of hospital today, if bed is available per CM plan. I have discussed symptoms management plan at end of life with Dr. Caho and he knows which medications must be on discharge list for comfort. 06/20: counseling (see my note) the family seems to understand this counseling and is interested in a possible transfer. Dr. George asked Ms. Stern, our PC social professionals, to communicate this to case management. Goals: Presumed intraabdominal process causing infection-etiology may be stone, but family does not want intervention. They want comfort care Per Dr Curry's 06/19 note: Daughter Madhavi requested hospice if she survives to be discharged --possibly to [facility]. CM notified. Patient was on the indep side of [place] DPOA/Advanced Directives/POLST-DPOAHC is Madhavi. She has paperwork at her mother's apt. POLST- will want to complete this to reflect DNR/comfort-she has one dated 2013 with DNR/limited but with aim for comfort. Family/emotional support-very strong cohesive family Spiritual support-she has been seen by machine packer. Problems: End of Life Preferences comfort care Disposition Hopefully will be able to get back to [place]. Resuscitation Status Resuscitation Status: DNR/DNI:Do Not Resuscitate/Intubate POLST Updates/Changes Artificially Admin Nutrition: No Artifical Nutrition by Tube POLST Discussed with: Health Care Agent (DPOAHC) Total time 35 minutes; >50% face to face with patient and/or family, providing counselling regarding plans and recommendations, and in care coordination with his/her medical teams. I also spent an additional [ ] minutes counseling for advanced care planning with the patient/the patients family/the surrogate decision maker. Palliative Brief Note Date of Service Jun 21, 2016 . Palliative Care Consult requested by: Dr. Alvarado Reason: GOC, sx management Patient Identification: Mrs. Cisse is a 75 yo patient admitted for acute on chronic abdominal pain on 06/17. The patient has been at [place] on the unassisted side with the help of her daughter Mary for a few years. She has had a rather rapid decline in her mentation and physical health in the past 3 months. Her hx is from charts and her 2 daughters Mary and Madhavi. Past medical history: Significant for a long hx of ETOH abuse with cessation of drinking for about 23 yrs ago. Family started noticing memory problems about 15 yrs ago, preventing her from driving 10 yrs ago because she would get lost. She needed more assistance and had been living with Mary but over the past 5 yrs became more verbally abusive. They moved her into [place] with Mary assisting but also having caregivers for bath assist etc. She has progressively deteriorated, declining showers, cleaning self, giving clothes away to the point she has none left for changing etc. She has had RUQ abdominal pain for years; and had a lap don in 2011 with note of cirrhotic liver and continued to complain of abd pain since. Hospital Course: She refused most interventions up until this admission. She has had serum tests suggestive of worsening infection-WBC 18K increasing procalcitonin and CR starting at 1.48 and now 1.79. She was started on IVFs and antibiotics for question of choledocolithiasis, but subsequently has asked her daughter to "just let me go". She has a POLST completed DNR. During discussion with Dr. Curry 06/19, the family requested no further antibiotic treatment. Family would like her to be comfortable and pt was able to state 06/[address] Curry that she would like hospice, if she survives to be discharged. On 06/20, Dr. George discussed comfort with 2 daughters and initiated comfort care order set for patient. On 06/21, rounds, there is no family in room and the patient was sleeping quietly , breathing regularly, and woke up spontaneously while Dr. George initiated gentle exam of her heart and lungs. She is confused, speech slurred and easily reassured verbally. She goes back to sleep. General Appearance: thin, white hair, pale, more confused and inattentive today. HEENT: normal head and neck, pupils pinpoint, Lungs: clear Heart: S1, S2, rrr, no murmur appreciated Abdomen: soft, distended, slighly decreased bowel sounds compared to yesterday' s exam. + slight tenderness over epigastric area Extremities: no edema, warm, dry, no mottling observed. Jammie George MD Jun 21, 2016 10:28
--- NOTE | 2016-06-21 10:30 | NUR ---
GREGG signed Pt's daughter signed, DPOA. Mary Pena AERIAL APPLICATOR PILOT
[2016-06-21 10:42] VITALS: BP 176/92; PULSE 81; RESP 16; O2SAT 95
--- NOTE | 2016-06-21 10:45 | NUR ---
Spoke with Zia at [facility] and they have gotten denial from [facility]. Updated EMERGENCY MEDICAL SERVICE MANAGER and let her know daughter will need to know and plan most likely will be [facility] private pay. Updated EMERGENCY MEDICAL SERVICE MANAGER Addendum: 06/21/16 at 1159 by SUZETTE KHAN Called for PVT Pay prices [facility]: 297.00 semi private room [facility] : 295.00 LTC Semi PVT Room and 400.00 Rehab semi PVT Room. They have no private rooms available at this time. Updated EMERGENCY MEDICAL SERVICE MANAGER
--- NOTE | 2016-06-21 12:16 | NUR ---
Social Work: Continued d/c planning Data: Pt is on day 4 of hospitalization. EMR reviewed. INCINERATOR PLANT LABORER spoke with pt's daughter, explained options. INCINERATOR PLANT LABORER explained that [facility] and [facility] both have semi-private rooms costing between 295-297 per day. [facility] has semi private for $316 per day and private for $357 per day. She states they want a private room, but that they are also considering sending her back to [place] if they can make her assisted. Pt's daughter called [place]. Pt's daughter notified INCINERATOR PLANT LABORER that they would like to try for [place] assisted and gave INCINERATOR PLANT LABORER their phone number: [phone] and to ask for either Madhavi or [facility]. INCINERATOR PLANT LABORER spoke with [facility] who states she will be at the hospital to assess pt for assisted level of care around 2pm. Hospice info visit was set up for 1pm today. INCINERATOR PLANT LABORER notified RN. INCINERATOR PLANT LABORER will continue to follow. Assessment: Pt who is independent at baseline. Plan: Pt will either d/c to [facility] or to [facility], both likely with hospice care. INCINERATOR PLANT LABORER will continue to follow. LYNN Martinez
[2016-06-21] MEDS: oxyCODONE 1 mg/mL 5 mL Liquid PO SCH ×2 (14:30→20:21)
--- NOTE | 2016-06-21 16:06 | NUR ---
Social Work: Continued d/c planning Data: Pt is on day 4 of hospitalization. EMR reviewed. OPERATIONS OFFICER TRUST DEPARTMENT informed pt's family has signed hospice consents. OPERATIONS OFFICER TRUST DEPARTMENT spoke with pt's daughter who states they plan to meet with [facility] on the morning on 06/22/16 regarding pt going there that day. [facility] did not come this afternoon to assess pt, OPERATIONS OFFICER TRUST DEPARTMENT called and left a message with [facility] regarding this to see what time they can come on 06/21/16. Assessment: Pt who is independent at baseline. Plan: [facility] to evaluate pt tomorrow. Pt to d/c to [facility] for Assisted living pending evaluation with hospice. OPERATIONS OFFICER TRUST DEPARTMENT will continue to follow. LYNN Martinez
--- NOTE | 2016-06-21 17:25 | PCM.PNMED ---
Subjective Date of Service Jun 21, 2016 Subjective pt denies any pain or discomfort. Exam Vital Signs Vital Sign - Last Date Time Temp Pulse Resp B/P Pulse Ox O2 Delivery O2 Flow Rate FiO2 06/21/16 10:42 06/20/16 03:13 4.00 Intake and Output 06/20/16 06/20/16 06/21/16 Cumulative From/Thru 15:00 23:00 07:00 06/17/16 12:37 - 06/21/16 06:53 Intake Total 5 ml 100 ml 4295 ml Output Total 1285 ml Balance 5 ml 100 ml 3010 ml Intake Oral 100 ml 800 ml IV Total 5 ml 3495 ml Output Urine Total 1185 ml Emesis 100 ml # Voids 1 4 # Bowel Movements 0 Exam pleasantly confused and disoriented x 3 General: Alert, No Acute Distress Head: Normal Eyes: Scleral Anicteric Nose: Mucous Membr Moist/[place] Mouth: Mucous Membr Moist/[place] IVs and Medications Medications Reviewed: Medications were reviewed in detail Lab and Diagnostics Result Diagram: 06/18/1660406/18/16 06 Additional Diagnostics Date of Service: 06/18/16 0901 PROCEDURE: US ABDOMEN IMPRESSION: 1. Persistent prominent extrahepatic biliary duct measuring 11.5 cm. There is also pancreatic duct dilation measuring 6.7 mm. Recommend clinical correlation for biliary obstruction. If clinically indicated, MRCP is recommended for further evaluation. 2. Cholecystectomy. 3. Small left pleural effusion. Dictated by: Orlando Lowry M.D. on 06/18/2016 at 9:34 Approved by: Orlando Lowry M.D. on 06/18/2016 at 9:38 Assessment & Plan 75 year-old female with history of advanced demential, Coronary artery disease, Hypertension, Type 2 diabetes, Cholecystectomy 2011 presenting with acute abdominal pain. # Acute right upper quadrant pain, present on admission. Resolved - Abd U/S showing: " Persistent prominent extrahepatic biliary duct measuring 11.5 cm. There is also pancreatic duct dilation measuring" - was started empirically on Rocephin, azithromycin on admission - changed Antibiotics to IV Zosyn but then stopped on 06/19/16 per palliative care and discussion with patient's family and DPOA. - offered MRCP and GI Consult but patient's daughter/DPOA who is also a nurse does not want any further workup and notes that patient's wishes have been to be comfort care only. # Acute urinary tract infection, present on admission. Active. - Abx as noted above # Possible acute pneumonia vs chronic changes, present on admission. Active. - respiratory virus PCR negative, - currently having acute hypoxic respiratory failure, not present on admission. # Type 2 diabetes. Present on admission, uncontrolled. - continue with supportive care # History of Hypertension. stable # Coronary artery disease. - per admit notes patient has elected not to treat this # Chronic kidney disease, present on admission. Active. - Baseline creatinine not known. # Prior history of delirium in hospitals. stable. - continue with Seroquel # Goals of care - appreciate palliative care consult. will followup with recommendations. - continue with comfort care only Dispo: likely home with hospice in am VTE Mechanical Devices: Intermittant Pneumatic CD Resuscitation Status: DNR/DNI:Do Not Resuscitate/Intubate Brian Chao Jun 21, 2016 17:25
[2016-06-21] MEDS: oxyCODONE 1 mg/mL 5 mL Liquid PO PRN ×2 (18:48→23:06)
[2016-06-21] MEDS ORDERED: Haloperidol 5 mg/mL Inj IM PRN (23:55)
[2016-06-22] MEDS: oxyCODONE 1 mg/mL 5 mL Liquid PO SCH ×4 (02:30→22:18)
--- NOTE | 2016-06-22 05:29 | NUR ---
Agitation and mentation Screaming and getting out of bed. Very confused and kicking everyone out of the room. Hallucinating and not able to communicate needs. Would not take ANY oral medications. Got IV meds ordered. Pt getting IV morphine q4 hours through night and had to get Haldol IM x1 which did not help. Ativan given towards morning and pt is currently asleep.
--- NOTE | 2016-06-22 09:21 | NUR ---
Palliative care note D/A: Pt discussed in PC rounds this am. Note that she had a difficult night last night. [facility] did not visit on 06/21/16 as planned, GRINDER SET UP OPERATOR EXTERNAL has left a message with them to inquire as to plans. Family indicated that they were planning on visiting [facility] today. Dr. George to assess if condition from last night changes her recommendations on if pt can dc prior to date of [facility] open. At this time, date of [facility] open is planned for 06/24/16. Dr. Geogre is able to briefly see pt this am and notes that she is looking poorly. Msg left for [facility] GRINDER SET UP OPERATOR EXTERNAL. P: Palliative care to follow. Nai ZENDEJAS, CCM
--- NOTE | 2016-06-22 10:55 | PCM.PALLBR ---
Palliative Care Recommendation Summary of palliative recommendations: Assessment: Patient is likely going to within a week or so, but has not entered a phase of "actively dying." She is still conscious, somewhat verbal. Apparently drank liquids this morning, as these are on her bedside table and look fresh. 1. In my clinical opinion, pt may in a week or so, and I would not be surprised if she sooner. However, on re-exam today 06/22, she is still drinking sips of water, has no apnea, has no mottling, and this argues against a in the next 48 hours. I think she would likely do well if transferred to another location outside the hospital. The transferring process might be a little disruptive for her, but I think she would likely settle in at the new location quickly. 2. On 06/20, I observed that she was quietly, calmly hallucinating--which does not need medical intervention until she were to become agitated or frightened of what she sees. For hallucinations that are frightening: start 1mg Haldol intensol liquid po q 3 hours as needed. 3. For pain: start oxycodone concentrated liquid 5-10 mg po q 1 hour as needed. 5mg for mild to moderate pain/10mg for severe pain. Because pt likely to go to a facility, I am adding scheduled 5mg q 6 hours around the clock, so pt's pain will be assessed by nursing team q 6 hours. 4. The haldol can also be used for agitation not related to hallucinations or for nausea or vomiting. 5. Continue comfort care as ordered. 06/21: No family in room. I have spoken to Attending Dr. Chao and CM at discharge rounds today to give my assessment. I believe she can be safely transferred out of hospital today, if bed is available per CM plan. I have discussed symptoms management plan at end of life with Dr. Chao and he knows which medications must be on discharge list for comfort. 06/20: counseling (see my note) the family seems to understand this counseling and is interested in a possible transfer. Dr. George asked Ms. Stern, our sr. social media & mobile manager, to communicate this to case management. Goals: Presumed intraabdominal process causing infection-etiology may be stone, but family does not want intervention. They want comfort care Per Dr Curry's 06/19 note: Daughter Madhavi requested hospice if she survives to be discharged --[facility]. CM notified. Patient was on the indep side of [facility] DPOA/Advanced Directives/POLST-DPOAHC is Madhavi. She has paperwork at her mother's apt. POLST- will want to complete this to reflect DNR/comfort-she has one dated 2013 with DNR/limited but with aim for comfort. Family/emotional support-very strong cohesive family Spiritual support-she has been seen by dice person. Problems: End of Life Preferences comfort care Disposition Hopefully will be able to get back to [facility]. Resuscitation Status Resuscitation Status: DNR/DNI:Do Not Resuscitate/Intubate POLST Updates/Changes Artificially Admin Nutrition: No Artifical Nutrition by Tube POLST Discussed with: Health Care Agent (DPOAHC) Total time 35 minutes; >50% face to face with patient and/or family, providing counselling regarding plans and recommendations, and in care coordination with his/her medical teams. I also spent an additional [ ] minutes counseling for advanced care planning with the patient/the patients family/the surrogate decision maker. Palliative Brief Note Date of Service Jun 22, 2016 . Palliative Care Consult requested by: Dr. Alvarado Reason: GOC, sx management Patient Identification: Mrs. Cisse is a 75 yo patient admitted for acute on chronic abdominal pain on 06/17. The patient has been at [facility] on the unassisted side with the help of her daughter Mary for a few years. She has had a rather rapid decline in her mentation and physical health in the past 3 months. Her hx is from charts and her 2 daughters Mary and Madhavi. Past medical history: Significant for a long hx of ETOH abuse with cessation of drinking for about 23 yrs ago. Family started noticing memory problems about 15 yrs ago, preventing her from driving 10 yrs ago because she would get lost. She needed more assistance and had been living with Mary but over the past 5 yrs became more verbally abusive. They moved her into [facility] with Mary assisting but also having caregivers for bath assist etc. She has progressively deteriorated, declining showers, cleaning self, giving clothes away to the point she has none left for changing etc. She has had RUQ abdominal pain for years; and had a lap don in 2011 with note of cirrhotic liver and continued to complain of abd pain since. Hospital Course: She refused most interventions up until this admission. She has had serum tests suggestive of worsening infection-WBC 18K increasing procalcitonin and CR starting at 1.48 and now 1.79. She was started on IVFs and antibiotics for question of choledocolithiasis, but subsequently has asked her daughter to "just let me go". She has a POLST completed DNR. During discussion with Dr. Curry 06/19, the family requested no further antibiotic treatment. Family would like her to be comfortable and pt was able to state 06/[address] Curry that she would like hospice, if she survives to be discharged. On 06/22, Dr George re-examined pt. She is somnolent due to IV pain and anxiety and agitation meds given overnight (IV morphine, IV ativan and IM haldol). She is confused. On exam, pt has empty rectal vault and no need for suppository (hadn't had any BMs in several days). She has pinpoint pupils, no mottling, no apnea, regular breathing. On 06/20, Dr. George discussed comfort with 2 daughters and initiated comfort care order set for patient. On 06/21, rounds, there is no family in room and the patient was sleeping quietly , breathing regularly, and woke up spontaneously while Dr. George initiated gentle exam of her heart and lungs. She is confused, speech slurred and easily reassured verbally. She goes back to sleep. General Appearance: thin, white hair, pale, more confused and inattentive today. HEENT: normal head and neck, pupils pinpoint, Lungs: clear Heart: S1, S2, rrr, no murmur appreciated Abdomen: soft, distended, slighly decreased bowel sounds compared to yesterday' s exam. + slight tenderness over epigastric area Extremities: no edema, warm, dry, no mottling observed. Jammie George MD Jun 22, 2016 10:55
--- NOTE | 2016-06-22 13:43 | NUR ---
Social Work: Continued d/c planning Data: Pt is on day 5 of hospitalization. EMR reviewed. STEEL DIE PRESS SET UP OPERATOR called [facility] three times this morning, have not heard back from them regarding if assessment is needed before going there for Assisted Living. STEEL DIE PRESS SET UP OPERATOR spoke with pt's daughter who states she met with Soakers Supervisor at [facility] this morning and they are planning on pt going there to Assisted Living with hospice to open on Saturday. STEEL DIE PRESS SET UP OPERATOR called hospice and requested the hospital bed be delivered on Saturday. Pt will either d/c on Saturday or Saturday pending [facility]'s decision on if they can accept before hospice opens. STEEL DIE PRESS SET UP OPERATOR will continue to follow. Assessment: Pt who is independent at baseline. Plan: Pt will d/c to [facility] with hospice to open on Saturday. Hospital bed delivery will be on 06/23/16. STEEL DIE PRESS SET UP OPERATOR will continue to follow. LYNN Martinez
--- NOTE | 2016-06-22 14:35 | NUR ---
Took over patient care 1436pm patient has casandra monsivais
--- NOTE | 2016-06-22 15:05 | NUR ---
Mentation Patient mentation has declined today from yesterday. Patient is not speaking as much and has been sleeping much of the day with few periods of trying to sit up to get out of bed. Patient is unable to suck out of a straw today. Patient is extensive 2 person assist to BSC. Patient family in room at bedside.
--- NOTE | 2016-06-22 17:12 | PCM.PNMED ---
Subjective Date of Service Jun 22, 2016 Subjective ROS limited due to patient not very verbal today Exam Vital Signs Vital Sign - Last Date Time Temp Pulse Resp B/P Pulse Ox O2 Delivery O2 Flow Rate FiO2 06/22/16 00:39 Supplement Oxygen 06/21/16 10:42 06/20/16 03:13 4.00 Intake and Output 06/21/16 06/21/16 06/22/16 Cumulative From/Thru 15:00 23:00 07:00 06/17/16 12:37 - 06/22/16 00:39 Intake Total 10 ml 5 ml 4310 ml Output Total 150 ml 1435 ml Balance 10 ml -145 ml 2875 ml Intake Oral 800 ml IV Total 10 ml 5 ml 3510 ml Output Urine Total 150 ml 1335 ml Emesis 100 ml # Voids 1 5 # Bowel Movements 0 0 Exam General: Alert, No Acute Distress Head: Normal Eyes: Scleral Anicteric Nose: Mucous Membr Moist/[place] Mouth: Mucous Membr Moist/[place] Full exam deferred due to comfort care only IVs and Medications Medications Reviewed: Medications were reviewed in detail Lab and Diagnostics Result Diagram: 06/18/1660406/18/16604 Additional Diagnostics Date of Service: 06/18/16 0901 PROCEDURE: US ABDOMEN IMPRESSION: 1. Persistent prominent extrahepatic biliary duct measuring 11.5 cm. There is also pancreatic duct dilation measuring 6.7 mm. Recommend clinical correlation for biliary obstruction. If clinically indicated, MRCP is recommended for further evaluation. 2. Cholecystectomy. 3. Small left pleural effusion. Dictated by: Orlando Lowry M.D. on 06/18/2016 at 9:34 Approved by: Orlando Lowry M.D. on 06/18/2016 at 9:38 Assessment & Plan 75 year-old female with history of advanced demential, Coronary artery disease, Hypertension, Type 2 diabetes, Cholecystectomy 2011 presenting with acute abdominal pain. # Acute right upper quadrant pain, present on admission. Resolved - Abd U/S showing: " Persistent prominent extrahepatic biliary duct measuring 11.5 cm. There is also pancreatic duct dilation measuring" - was started empirically on Rocephin, azithromycin on admission - changed Antibiotics to IV Zosyn but then stopped on 06/19/16 per palliative care and discussion with patient's family and DPOA. - offered MRCP and GI Consult but patient's daughter/DPOA who is also a nurse does not want any further workup and notes that patient's wishes have been to be comfort care only. # Acute urinary tract infection, present on admission. Active. - Abx as noted above # Possible acute pneumonia vs chronic changes, present on admission. Active. - respiratory virus PCR negative, - currently having acute hypoxic respiratory failure, not present on admission. # Type 2 diabetes. Present on admission, uncontrolled. - continue with supportive care # History of Hypertension. stable # Coronary artery disease. - per admit notes patient has elected not to treat this # Chronic kidney disease, present on admission. Active. - Baseline creatinine not known. # Prior history of delirium in hospitals. stable. - continue with Seroquel # Goals of care - appreciate palliative care consult. will followup with recommendations. - continue with comfort care only Dispo: 1-2 days VTE Mechanical Devices: Intermittant Pneumatic CD Resuscitation Status: DNR/DNI:Do Not Resuscitate/Intubate Brian Chao Jun 22, 2016 17:12
[2016-06-22] MEDS: oxyCODONE 1 mg/mL 5 mL Liquid PO PRN (17:51)
[2016-06-22] MEDS: Haloperidol 2 mg/mL 5 mL Oral Conc Liquid PO PRN ×2 (19:28→22:17)
--- NOTE | 2016-06-22 19:37 | NUR ---
anxiety patient anxious and trying to get out of bed. yelling help. unable to redirect. up to [facility], void x1. sitter at bedside, talking to patient. given reassurance medicated with haldol 1mg po. plan to keep patient safe. frequent rounding. Addendum: 06/22/16 at 2101 by CLIFTON HEALY RN patient became very anxious. agitated. kicking. yelling. unable to redirect. assisted to [facility] by 2 coal unloader's. difficult to get back in bed.refused oral medications. notified hospitalist.via cookpaging. patient then became quiet without medication now resting on left side. sitter at bedside. dr kenney came to bedside. care ongoing.
[2016-06-22] MEDS ORDERED: Haloperidol 5 mg/mL Inj IVPUSH PRN (20:35)
[2016-06-22 22:33] VITALS: RESP 16
--- NOTE | 2016-06-22 22:56 | NUR ---
agitation - family communication spoke to ray vinayak. gave okay for novak catheter. patient very agitated and resistant to getting to [facility]. but insists that she needs to void. unable to redirect . . plan to place novak catheter as per palliative orders. Addendum: 06/22/16 at 2339 by CLIFTON HEALY RN novak catheter placed with sterile technique patient tolerated. reassured. given emotional support. now resting quietly, right side. sitter at bedside. care ongoing.
[2016-06-23] MEDS: Haloperidol 2 mg/mL 5 mL Oral Conc Liquid PO PRN ×4 (01:09→23:40)
--- NOTE | 2016-06-23 01:35 | NUR ---
agitation patient agitated. trying to get out of bed. states repeatedly, "i have to pee." explained novak catheter. patient unable to understand at this time. medicated with haldol 1 mg po. given emotional support. sitter at bedside.
[2016-06-23] MEDS: oxyCODONE 1 mg/mL 5 mL Liquid PO SCH ×5 (03:28→20:20)
--- NOTE | 2016-06-23 03:34 | NUR ---
pain patient states "my back , my back!" restless. medicated for back pain oxycodone elixir 5mg. swallowed. took a few sips of water. novak catheter patent. reassured. care ongoing
--- NOTE | 2016-06-23 06:26 | NUR ---
rest patient has been resting since administration of pain medication at 0330. moves independently in bed. no signs of restlessness at this time.
--- NOTE | 2016-06-23 09:11 | NUR ---
Social Work: Continued d/c planning Data: Pt is on day 6 of hospitalization. EMR reviewed. CROP PICKER received a voice mail from Madhavi, finance executive at [facility] requesting a call back, she did not say in the message if an assessment is needed or not. CROP PICKER called back, Madhavi and Luba are not in today. CROP PICKER requested to speak with someone who may know how to get in contact with Madhavi, ward secretary forwarded CROP PICKER to lead RN. Lead RN states that Madhavi will be in on Saturday, Luba may be in on Saturday. CROP PICKER explained that hospice is scheduled to open on Saturday, 06/24 and that requested their personal cell phone numbers in order to plan the discharge back to them today or tomorrow morning. She states she cannot give out their personal cell phone numbers but will contact Madhavi who will give CROP PICKER a call today regarding this matter. CROP PICKER awaiting this phone call. Assessment: Pt to go home with hospice. Plan: Pt will d/c to [facility] with hospice to open on Saturday. CROP PICKER awaiting phone call from Madhavi regarding if assessment is needed or not before return. CROP PICKER will continue to follow. LYNN Martinez
--- NOTE | 2016-06-23 10:13 | NUR ---
Social Work: Continued d/c planning Data: Pt is on day 6 of hospitalization. EMR reviewed. Yeni from [place] called [employer] and stated they do not need to do an assessment on pt. They state that they need a form filled out by hospitalist, LYNN facilitating getting paperwork to MD to complete then back to [place] today. OXYGEN EQUIPMENT PREPARER spoke with hospice and confirmed bed is being delivered today and that they will open with pt between 10am-11am on 06/24. OXYGEN EQUIPMENT PREPARER updated family. OXYGEN EQUIPMENT PREPARER will continue to follow. Assessment: Pt with dementia. Plan: Pt will d/c to [facility] either this afternoon or on the morning on 06/24/16, hospice to open 06/24/16 between 10am-11am. MD completing paperwork, OXYGEN EQUIPMENT PREPARER to fax paperwork over to [facility] once complete. OXYGEN EQUIPMENT PREPARER will continue to follow. LYNN Martinez Addendum: 06/23/16 at 1022 by LAILA BATISTA SS Paperwork completed, faxed to [place], . LYNN Martinez
--- NOTE | 2016-06-23 10:35 | NUR ---
GREGG signed LYNN Martinez
[2016-06-23] MEDS: oxyCODONE 1 mg/mL 5 mL Liquid PO PRN ×6 (11:01→22:02)
--- NOTE | 2016-06-23 11:06 | NUR ---
pain/agitation pt continues to complain of abd pain/pressure. novak in place, draining yellow urine. family at bedside. lots of reassurance provided. PRN meds given fo comfort. bed in low position, 3 rails up. Kpad on abd for comfort. call light in reach. will continue to monitor. Addendum: 06/23/16 at 1617 by ADONAY JARA RN Pt continues to get agitated and wants to get out of bed. Family present and helps with distracting pt. Oxycodone q6 and q1 are used for pts comfort, along with PRN Haldol. Meds are ill-effective, will consider giving a 10mg Oxycodone at next due time (q1hr).
--- NOTE | 2016-06-23 11:46 | NUR ---
Social Work: Continued d/c planning Data: MARKETING COMMUNITY LIAISON received a message from [facility] stating she spoke with their regional sales executive Madhavi and that she was incorrect in saying no assessment was needed. She said in the voice mail that the earliest an assessment could be done is Saturday and they could take pt after that. MARKETING COMMUNITY LIAISON called her back, she is out of the office. MARKETING COMMUNITY LIAISON explained in a voicemail to Yeni that hospice is scheduled to open on Saturday and that there is no guarantee when they could open next. MARKETING COMMUNITY LIAISON also mentioned that Luba was scheduled to come to complete the assessment on afternoon, 06/21/16, but failed to show up. MARKETING COMMUNITY LIAISON called [facility] on 06/22/16 regarding when they could come that day or Saturday, but they did not come Saturday. MARKETING COMMUNITY LIAISON awaiting phone call from Yeni. LYNN Martinez
--- NOTE | 2016-06-23 16:44 | PCM.PNMED ---
Subjective Date of Service Jun 23, 2016 Subjective ROS limited due to patient sleeping currently and comfort care only Exam Vital Signs Vital Sign - Last Date Time Temp Pulse Resp B/P Pulse Ox O2 Delivery O2 Flow Rate FiO2 06/22/16 22:33 16 Room Air 06/21/16 10:42 06/20/16 03:13 4.00 Intake and Output 06/22/16 06/22/16 06/23/16 Cumulative From/Thru 15:00 23:00 07:00 06/17/16 12:37 - 06/23/16 06:44 Intake Total 205 ml 100 ml 4615 ml Output Total 250 ml 575 ml 2260 ml Balance -45 ml -475 ml 2355 ml Intake Oral 200 ml 100 ml 1100 ml IV Total 5 ml 3515 ml Output Urine Total 250 ml 575 ml 2160 ml Emesis 100 ml # Voids 5 # Bowel Movements 0 0 0 Exam General: Alert, No Acute Distress Head: Normal Eyes: Scleral Anicteric Nose: Mucous Membr Moist/[place] Mouth: Mucous Membr Moist/[place] Full exam deferred due to comfort care only IVs and Medications Medications Reviewed: Medications were reviewed in detail Lab and Diagnostics Result Diagram: 06/18/1660406/18/16604 Additional Diagnostics Date of Service: 06/18/16 09 PROCEDURE: US ABDOMEN IMPRESSION: 1. Persistent prominent extrahepatic biliary duct measuring 11.5 cm. There is also pancreatic duct dilation measuring 6.7 mm. Recommend clinical correlation for biliary obstruction. If clinically indicated, MRCP is recommended for further evaluation. 2. Cholecystectomy. 3. Small left pleural effusion. Dictated by: Orlando Lowry M.D. on 06/18/2016 at 9:34 Approved by: Orlando Lowry M.D. on 06/18/2016 at 9:38 Assessment & Plan 75 year-old female with history of advanced demential, Coronary artery disease, Hypertension, Type 2 diabetes, Cholecystectomy 2011 presenting with acute abdominal pain. # Acute right upper quadrant pain, present on admission. Resolved - Abd U/S showing: " Persistent prominent extrahepatic biliary duct measuring 11.5 cm. There is also pancreatic duct dilation measuring" - was started empirically on Rocephin, azithromycin on admission - changed Antibiotics to IV Zosyn but then stopped on 06/19/16 per palliative care and discussion with patient's family and DPOA. - offered MRCP and GI Consult but patient's daughter/DPOA who is also a nurse does not want any further workup and notes that patient's wishes have been to be comfort care only. # Acute urinary tract infection, present on admission. Active. - Abx as noted above # Possible acute pneumonia vs chronic changes, present on admission. Active. - respiratory virus PCR negative, - currently having acute hypoxic respiratory failure, not present on admission. # Type 2 diabetes. Present on admission, uncontrolled. - continue with supportive care # History of Hypertension. stable # Coronary artery disease. - per admit notes patient has elected not to treat this # Chronic kidney disease, present on admission. Active. - Baseline creatinine not known. # Prior history of delirium in hospitals. stable. - continue with Seroquel # Goals of care - appreciate palliative care consult. will followup with recommendations. - continue with comfort care only Dispo: 1-2 days VTE Mechanical Devices: Intermittant Pneumatic CD Resuscitation Status: DNR/DNI:Do Not Resuscitate/Intubate Brian Chao Jun 23, 2016 16:44
--- NOTE | 2016-06-23 16:50 | NUR ---
Social Work: Readiness for d/c Data: [facility] spoke with pt's daughter and notified her that they can take pt back without an assessment. FINE ARTS MODEL called [facility] to confirm, spoke with Yeni who states she was previously misinformed of the information and that pt can return to her independent living at [facility] with family members to assist her as needed without an assessment. Pt's family prefers a wheel-chair van to take pt back home to [facility]. FINE ARTS MODEL informed them this would be private pay, they were agreeable. FINE ARTS MODEL called the three [employer] which have wheel chair vans available on Sundays, none of them have availability before hospice opens on 06/24/16. FINE ARTS MODEL informed family. FINE ARTS MODEL spoke with pt's RN who states that pt is capable of transporting in a car and that hospital staff will assist her into the car and family will need to assist her into her home at [facility] once she is there. FINE ARTS MODEL spoke with pt's daughter, who is agreeable to that plan. Plan: Pt will d/c home to [facility] via POV with family members at 8:30am on 06/24/16 with hospice to open between 10-11am on the same date. FINE ARTS MODEL will continue to follow. LYNN Martinez
--- NOTE | 2016-06-23 17:25 | NUR ---
Social Work: Continued d/c planning Data: SKIDDER OPERATOR was informed by [facility] that they have moved pt to open on Saturday06/25/16 between 10-11am due to the plan of d/c facility being in flux today; they do not have the time open on Saturday morning any longer. SKIDDER OPERATOR set up a wheel chair van transportation on Saturday06/25/16 at 8:30am through [employer]. SKIDDER OPERATOR notified pt's daughter, , RN of plan, all updated and agreeable to plan. Assessment: Pt with dementia, to open with hospice. Plan: Pt will d/c back to [facility] in [place] on 06/25/16, morning at 8:30am with hospice to open that day between 10-11am. MD will need to complete d/c orders in advance of this time on Saturday. SKIDDER OPERATOR will continue to follow. LYNN Martinez
[2016-06-23 20:36] VITALS: BP 153/72; PULSE 77; RESP 20; O2SAT 96
--- NOTE | 2016-06-23 22:27 | NUR ---
Assumed care,moved patient This RN assumed care at 2100, transferred patient from room 3014 to 3029 r/t staffing and closer monitoring. Patient disoriented at time, but was updated on intervention as much as possible. All belongings transferred with patient.
[2016-06-24] MEDS: oxyCODONE 1 mg/mL 5 mL Liquid PO PRN ×4 (00:01→23:00)
[2016-06-24] MEDS: oxyCODONE 1 mg/mL 5 mL Liquid PO SCH ×4 (02:57→20:45)
--- NOTE | 2016-06-24 03:49 | NUR ---
Behavior Patient has been intermittently sleeping, wakes up and yells, "Help!" and tries to get out of bed. Seems agitated with staff interactions, but then apologizes. Frequent reorienting. Patient is difficult to understand because of slurred speech. Complaints of having to go to the bathroom, Garza catheter is in place and draining well, denies urge to have bowel movement. Reported lower, right abdominal pain- administered pain medication, as ordered and PRN. Bed alarm on for safety, close monitoring in place.
[2016-06-24] MEDS: Haloperidol 2 mg/mL 5 mL Oral Conc Liquid PO PRN ×3 (07:18→23:55)
--- NOTE | 2016-06-24 10:30 | NUR ---
Constipation Pt trying to get up out of bed, sts "I have to go to the bathroom" 2 Per Max assist to BSC with no BM or relief. Pt given rectal suppository of Dulcolax at 0900 with loose stool x 2. Pt resting quietly, appears to be sleeping, family at bedside assisting.g with care
--- NOTE | 2016-06-24 15:20 | PCM.PNMED ---
Subjective Date of Service Jun 24, 2016 Subjective ROS limited due to patient sleeping currently and comfort care only Exam Vital Signs Vital Sign - Last Date Time Temp Pulse Resp B/P Pulse Ox O2 Delivery O2 Flow Rate FiO2 06/23/16 20:36 36.8 77 20 153/72 96 Room Air 06/20/16 03:13 4.00 Intake and Output 06/23/16 06/23/16 06/24/16 Cumulative From/Thru 15:00 23:00 07:00 06/17/16 12:37 - 06/24/16 06:25 Intake Total 0 ml 4615 ml Output Total 370 ml 300 ml 2930 ml Balance -370 ml -300 ml 1685 ml Intake Oral 0 ml 1100 ml IV Total 3515 ml Output Urine Total 370 ml 300 ml 2830 ml Emesis 100 ml # Voids 5 # Bowel Movements 0 0 Exam General: No Acute Distress Head: Normal Full exam deferred due to comfort care only IVs and Medications Medications Reviewed: Medications were reviewed in detail Lab and Diagnostics Result Diagram: 06/18/1660406/18/16 06 Additional Diagnostics Date of Service: 06/18/16 0901 PROCEDURE: US ABDOMEN IMPRESSION: 1. Persistent prominent extrahepatic biliary duct measuring 11.5 cm. There is also pancreatic duct dilation measuring 6.7 mm. Recommend clinical correlation for biliary obstruction. If clinically indicated, MRCP is recommended for further evaluation. 2. Cholecystectomy. 3. Small left pleural effusion. Dictated by: Orlando Lowry M.D. on 06/18/2016 at 9:34 Approved by: Orlando Lowry M.D. on 06/18/2016 at 9:38 Assessment & Plan 75 year-old female with history of advanced demential, Coronary artery disease, Hypertension, Type 2 diabetes, Cholecystectomy 2011 presenting with acute abdominal pain. # Acute right upper quadrant pain, present on admission. Resolved - Abd U/S showing: " Persistent prominent extrahepatic biliary duct measuring 11.5 cm. There is also pancreatic duct dilation measuring" - was started empirically on Rocephin, azithromycin on admission - changed Antibiotics to IV Zosyn but then stopped on 06/19/16 per palliative care and discussion with patient's family and DPOA. - offered MRCP and GI Consult but patient's daughter/DPOA who is also a nurse does not want any further workup and notes that patient's wishes have been to be comfort care only. # Acute urinary tract infection, present on admission. Active. - Abx as noted above # Possible acute pneumonia vs chronic changes, present on admission. Active. - respiratory virus PCR negative, - currently having acute hypoxic respiratory failure, not present on admission. # Type 2 diabetes. Present on admission, uncontrolled. - continue with supportive care # History of Hypertension. stable # Coronary artery disease. - per admit notes patient has elected not to treat this # Chronic kidney disease, present on admission. Active. - Baseline creatinine not known. # Prior history of delirium in hospitals. stable. - continue with Seroquel # Goals of care - appreciate palliative care consult. will followup with recommendations. - continue with comfort care only Dispo: home with hospice in am VTE Mechanical Devices: Intermittant Pneumatic CD Resuscitation Status: DNR/DNI:Do Not Resuscitate/Intubate Brian Chao Jun 24, 2016 15:20
[2016-06-24] MEDS ORDERED: Bisacodyl RC (15:24)
[2016-06-24] MEDS ORDERED: HALO2ORA PO (15:24)
[2016-06-24] MEDS ORDERED: SENN-133 PO (15:24)
[2016-06-24] MEDS ORDERED: OXYC5SOL11 PO ×2 (15:24)
--- NOTE | 2016-06-24 15:28 | PCM.DIMED ---
Discharge Instructions Date of Service Jun 24, 2016 Dates of Hospitalization Jun 17, 2016 at 15:46 Discharge Diagnosis Discharge Diagnosis # Acute right upper quadrant pain, present on admission. Resolved - Abd U/S showing: " Persistent prominent extrahepatic biliary duct measuring 11.5 cm. There is also pancreatic duct dilation" - Presumed intraabdominal process causing infection-etiology may be stone, but family does not want intervention. They want comfort care # Acute urinary tract infection, present on admission. Presumed active # Possible acute pneumonia vs chronic changes, present on admission. Active. # Type 2 diabetes. Present on admission, uncontrolled. # History of Hypertension. stable # Coronary artery disease. # Chronic kidney disease # End of life care with comfort care only and hospice Diet No restrictions Activity No restrictions Patient Instructions Hospice to continue with comfort care only Follow-up plan 1. Followup with hospice as planned 2. Followup with primary care provider as needed Brian Chao Jun 24, 2016 15:28
--- NOTE | 2016-06-24 16:59 | NUR ---
Social Work Note: Continued Discharge Planning Data& Assessment: Per [facility] at Hospice, they are unable to open until 2-3p.m. tomorrow 06/25/2016. SW to continue to follow. Plan: Anticipated discharge back to [place] via cabulance at 8:30am with hospice to open between 2-3p.m. tomorrow, 06/25/2016. SW to continue to follow. LYNN Salvador
--- NOTE | 2016-06-24 17:31 | NUR ---
Agitation/behavior Pt reports has to get up and urinate, became tearful when this RN explained that she had a novak catheter. Pt is clutching at the staff and appears to be increasingly agitated about getting up to urinate. Family has requested medication for agitation be administered. 1 mg oral Haldol given. Pt is resting quietly, appears to be comfortable, RRR, Will continue to monitor.
[2016-06-24 17:35] VITALS: BP 151/80; PULSE 85; RESP 24; O2SAT 87
[2016-06-24] MEDS ORDERED: Haloperidol 5 mg/mL Inj IVPUSH ONE (21:10)
--- NOTE | 2016-06-24 21:39 | NUR ---
Agitation: During assessment patient found to be agitated, yelling out that she needs to get up and that she needs to go "pee pee". Pt throwing legs over side of bed. New order obtained for a x1 dose of Haldol; administered along with PRN pain medication for patient comfort. Sitter with patient, RN will continue to assess. Addendum: 06/25/16 at 0634 by TANYA RIOS RN Pt continued to be agitated throughout the night; confused and difficult to redirect. Pt constantly trying to get out of bed and pulling at novak catheter; Haldol IV ordered obtained x3 total throughout the night, effective. Current order does not appear to be effective with patient, will pass to day shift RN to discuss with MD. Matts placed on floor during the night for pt safety.
[2016-06-25] MEDS ORDERED: Haloperidol 5 mg/mL Inj IM ONE (01:50)
[2016-06-25] MEDS: oxyCODONE 1 mg/mL 5 mL Liquid PO SCH (02:40)
[2016-06-25] MEDS ORDERED: Haloperidol 5 mg/mL Inj IVPUSH ONE (05:25)
[2016-06-25] MEDS: oxyCODONE 1 mg/mL 5 mL Liquid PO PRN (06:38)
--- NOTE | 2016-06-25 07:15 | NUR ---
IV access Pt pulled IV, IV cath intact. Pt resting quietly, appears to be comfortable. Palliative team made aware, will continue to monitor.
--- NOTE | 2016-06-25 08:57 | PCM.PALLBR ---
Palliative Care Recommendation Summary of palliative recommendations: Assessment: Patient is not "actively dying." She is conscious and verbal. 1. In my clinical opinion, pt's may not be as soon as we earlier suspect from impression that she had stone blockage in bile duct. My impression today is that she is over sedated and confused from the amount of oxycodone and haldol I ordered. I am going to change her pain and agitation medication and give smaller doses. 2. I think she would likely do well if transferred to another location outside the hospital. The transferring process might be a little disruptive for her, but I think she would likely settle in at the new location quickly. 3. Last week, 06/20, I observed that she was quietly, calmly hallucinating-- which does not need medical intervention until she were to become agitated or frightened of what she sees. I had her on haldol, which seemed to paradoxically increase agitation over the weekend. We will stop haldol today. For hallucinations that are frightening: use PRN quetiapine 6.25mg q 8 hours PRN. For prevention of agitation in the middle of night: 6.25mg po q HS. 3. For pain: We will stop the oxycodone now and start morphine 2mg po QID to prevent pain. This can be titrated up or down per nursing facility provider when if needed. Goals: Presumed intraabdominal process causing infection-etiology may be stone, but family does not want intervention. They want comfort care Per Dr Curry's 06/19 note: Daughter Madhavi requested hospice if she survives to be discharged --[facility] to [facility]. CM notified. Patient was on the indep side of [place] DPOA/Advanced Directives/POLST-DPOAHC is Madhavi. She has paperwork at her mother's apt. POLST- hoping to write a new POLST to reflect DNR/comfort-she has one dated 2013 with DNR/limited but with aim for comfort, however family not available today prior to discharge. Family/emotional support-very strong cohesive family Spiritual support-she has been seen by plastics and composites inspector. Problems: End of Life Preferences comfort care Disposition Hopefully will be able to get back to [place]. Resuscitation Status Resuscitation Status: DNR/DNI:Do Not Resuscitate/Intubate POLST Updates/Changes Artificially Admin Nutrition: No Artifical Nutrition by Tube POLST Discussed with: Health Care Agent (DPOAHC) . Advanced Care Planning Address: POLST, Comfort care Pain: Mild Symptom management: Agitation Total time 35 minutes; >50% face to face with patient and/or family, providing counselling regarding plans and recommendations, and in care coordination with his/her medical teams. I also spent an additional [ ] minutes counseling for advanced care planning with the patient/the patients family/the surrogate decision maker. Palliative Brief Note Date of Service Jun 25, 2016 . Palliative Care Consult requested by: Dr. Alvarado Reason: GOC, sx management Patient Identification: Mrs. Cisse is a 75 yo patient admitted for acute on chronic abdominal pain on 06/17. The patient has been at [place] on the unassisted side with the help of her daughter Mary for a few years. She has had a rather rapid decline in her mentation and physical health in the past 3 months. Her hx is from charts and her 2 daughters Mary and Madhavi. Past medical history: Significant for a long hx of ETOH abuse with cessation of drinking for about 23 yrs ago. Family started noticing memory problems about 15 yrs ago, preventing her from driving 10 yrs ago because she would get lost. She needed more assistance and had been living with Mary but over the past 5 yrs became more verbally abusive. They moved her into [place] with Mary assisting but also having caregivers for bath assist etc. She has progressively deteriorated, declining showers, cleaning self, giving clothes away to the point she has none left for changing etc. She has had RUQ abdominal pain for years; and had a lap don in 2011 with note of cirrhotic liver and continued to complain of abd pain since. Hospital Course: She refused most interventions up until this admission. She has had serum tests suggestive of worsening infection-WBC 18K increasing procalcitonin and CR starting at 1.48 and now 1.79. She was started on IVFs and antibiotics for question of choledocolithiasis, but subsequently has asked her daughter to "just let me go". She has a POLST completed DNR. During discussion with Dr. Curry 06/19, the family requested no further antibiotic treatment. Family would like her to be comfortable and family was able to state 06/[address] Curry that they would like hospice. She was quite agitated over the weekend , she has had lots of agitation, mainly at night. Usually complaining that she needed to urinate (she has a novak in place). This could be related to bladder spasms. on 06/25, Dr. George examined pt, who is now quiet, sitting up in a chair and can sip water through a straw with help of sitter. General Appearance: thin, white hair, pale, confused pleasant, thinks she is in [place]. HEENT: normal head and neck, pupils pinpoint, Lungs: clear Heart: S1, S2, rrr, no murmur appreciated Abdomen: soft, distended, good bowel sounds + slight tenderness over epigastric area (brow furrows, but she does not moan or push my hand away). Extremities: no edema, warm, dry, neither mottling or cyanosis observed. Jammie George MD Jun 25, 2016 08:57 HEENT: normal head and neck, pupils pinpoint, Lungs: clear Heart: S1, S2, rrr, no murmur appreciated Abdomen: soft, distended, good bowel sounds + slight tenderness over epigastric area (brow furrows, but she does not moan or push my hand away). Extremities: no edema, warm, dry, neither mottling or cyanosis observed. Jammie George MD Jun 25, 2016 08:57
--- NOTE | 2016-06-25 09:13 | NUR ---
Bladder scan Pt states "I have to go to the bathroom". This RN explained to pt she has a novak catheter in place, pt trying to get out of bed, placed on BSC then transferred to Eliz-chair, extended in reclining position. Pt continues sts I have to go to the bathroom. Bladder scan revealed 0 mls. Novak is draining yellow urine to gravity. 1:1 sitter at bedside for safety as pt is impulsive and pulls at her lines. Will continue to monitor.
[2016-06-25] MEDS ORDERED: MORP10SO PO (09:25)
[2016-06-25] MEDS ORDERED: QUET25TA73 PO ×2 (09:25→09:29)
[2016-06-25] MEDS ORDERED: SENN1TAB90 PO (09:30)
[2016-06-25] MEDS ORDERED: Artificial Tears AFFECT_EYE (09:30)
[2016-06-25 11:05] VITALS: BP 158/88
[2016-06-25] MEDS ORDERED: Morphine 2 mg/mL 5 mL Oral Solution PO SCH (11:30)
--- NOTE | 2016-06-25 11:30 | NUR ---
Discharge Pt discharged at this time, all belongings gathered and returned to pt. VSS. No complains of increased pain, nvoak catheter draining clear yellow urine. Hard copy of new scripts placed in discharge packet. Discharge packet printed and co-signed with Evelio Figueroa (media manager). Pt placed in wheelchair to be transported via Yellow cab assisted. Report called to Luba at [facility] in [place].
--- NOTE | 2016-06-25 11:38 | NUR ---
Social Work - Discharge Data& Assessment: EMR reviewed. Pt is on day 8 of hospitalization for pneumonia, bladder infection, dementia. Pt has been cleared to discharge home to [place] in [place] with Hospice, via cabulance at 10:45am. Palliative Care is following and has communicated with Hospice re: opening time. SW confirmed fruit picker time with yellow cab. SW contacted family to confirm discharge plan. All updated and agreeable to plan. No further needs assessed. Assessment: Pt who is open with hospice services. Plan: Pt to discharge back to [place] via cabulance at 10:45am with hospice to open between 2-3p.mLYNN Monreal
--- NOTE | 2016-06-25 15:11 | PCM.DC.MED ---
Discharge Summary Date of Service Jun 25, 2016 Dates of Hospitalization Date of Hospital Admission Jun 17, 2016 at 15:46 Date of Discharge: Jun 25, 2016 Providers: Admitting Physician: Patrice Chan MD Primary Care Physician: Patricia Attending Physician: Patrice Chan MD Diagnosis at Time of Discharge Diagnosis at Time of Discharge # Acute right upper quadrant pain, present on admission. Resolved - Abd U/S showing: " Persistent prominent extrahepatic biliary duct measuring 11.5 cm. There is also pancreatic duct dilation" - Presumed intraabdominal process causing infection-etiology may be stone, but family does not want intervention. They want comfort care # Acute urinary tract infection, present on admission. Presumed active # Possible acute pneumonia vs chronic changes, present on admission. Active. # Type 2 diabetes. Present on admission, uncontrolled. # History of Hypertension. stable # Coronary artery disease. # Chronic kidney disease # End of life care with comfort care only and hospice Consultations 1. Palliative care Procedures XRay, CTs & MRIs Date of Service: 06/17/16 1226 PROCEDURE: X-RAY ACUTE ABDOMINAL SERIES ([id number]) IMPRESSION: Widespread bilateral patchy and groundglass opacities, which could represent chronic diffuse/interstitial lung disease however the absence of comparison studies it would be difficult to exclude pulmonary edema or atypical/viral infection. Therefore please correlate clinically. Dictated by: Ottoniel Alfred M.D. on 06/17/2016 at 13:31 Approved by: Ottoniel Alfred M.D. on 06/17/2016 at 13:34 Other Diagnostics Date of Service: 06/18/16 0901 PROCEDURE: US ABDOMEN IMPRESSION: 1. Persistent prominent extrahepatic biliary duct measuring 11.5 cm. There is also pancreatic duct dilation measuring 6.7 mm. Recommend clinical correlation for biliary obstruction. If clinically indicated, MRCP is recommended for further evaluation. 2. Cholecystectomy. 3. Small left pleural effusion. Dictated by: Orlando Lowry M.D. on 06/18/2016 at 9:34 Approved by: Orlando Lowry M.D. on 06/18/2016 at 9:38 Brief History 75 year-old female with history of advanced demential, Coronary artery disease, Hypertension, Type 2 diabetes, Cholecystectomy 2011 presenting with acute abdominal pain. Hospital Course # Acute right upper quadrant pain, present on admission. Resolved - Abd U/S showing: " Persistent prominent extrahepatic biliary duct measuring 11.5 cm. There is also pancreatic duct dilation measuring" - was started empirically on Rocephin, azithromycin on admission - changed Antibiotics to IV Zosyn but then stopped on 06/19/16 per palliative care and discussion with patient's family and DPOA. - offered MRCP and GI Consult but patient's daughter/DPOA who is also a nurse does not want any further workup and notes that patient's wishes have been to be comfort care only. # Acute urinary tract infection, present on admission. Active. - Abx as noted above # Possible acute pneumonia vs chronic changes, present on admission. Active. - respiratory virus PCR negative, - currently having acute hypoxic respiratory failure, not present on admission. # Type 2 diabetes. Present on admission, uncontrolled. - continue with supportive care # History of Hypertension. stable # Coronary artery disease. - per admit notes patient has elected not to treat this # Chronic kidney disease, present on admission. Active. - Baseline creatinine not known. # Prior history of delirium in hospitals. stable. - continue with Seroquel # Goals of care - appreciate palliative care consult. will followup with recommendations. - continue with comfort care only by day of discharge patient continues to remain comfortable. Exam Vital Signs (Last) Date Time Temp Pulse Resp B/P Pulse Ox O2 Delivery O2 Flow Rate FiO2 06/25/16 11:05 158/88 06/24/16 17:35 37.2 85 24 87 Room Air 06/20/16 03:13 4.00 Test 06/17/16 12:30 06/17/16 12:39 06/17/16 17:40 06/18/16 06:05 Urine Legionella pneumophilia Ag Negative (Negative) Urine Color Yellow (YELLOW) Urine Appearance Cloudy (CLEAR,HAZY) Urine pH 6.0 (5.0-8.0) Urine Specific [place] 1.020 (1.003-1.035) Urine Protein 300mg/dL (NEG,TRACE) Urine Glucose (UA) Negativemg/dL (NEGATIVE) Urine Ketones Negativemg/dL (NEGATIVE) Urine Occult Blood Large (NEGATIVE) Urine Nitrite Negative (NEGATIVE) Urine Bilirubin Negative (NEGATIVE) Urine Urobilinogen Normalmg/dL (NORMAL) Urine Leukocyte Esterase Large (NEGATIVE) Urine RBC 0-2/hpf (0-2) Urine WBC Packed/hpf (0-5) Urine Epithelial Cells Few/hpf (NONE-MOD) Urine Crystals None seen (NONE SEEN) Urine Bacteria Many/hpf (NONE-FEW) Urine Hyaline Casts None/lpf (NONE) Urine Granular Casts None seen (NONE SEEN) Urine Waxy Casts None seen (NONE SEEN) Urine Red Blood Cell Casts None seen (NONE SEEN) Urine White Blood Cell Casts None seen (NONE SEEN) Urine Mucus None seen (None Seen) Urine Trichomonas None seen (NONE SEEN) Urine Yeast None (NONE SEEN) Urinalysis Comment None Urine Culture Reflexed Indicated Hemoglobin A1c 7.1% (4.8-5.6) Lipase 31U/L (13-60) Hold Ward Top Tube Received (Received) White Blood Count 17.3th/mm3 (3.8-10.1) Red Blood Count 4.13mil/mm3 (3.90-5.20) Hemoglobin 10.7g/dL (12.0-15.6) Hematocrit 33.4% (35.0-46.0) Mean Corpuscular Volume 80.9fL (81-100) Mean Corpuscular Hemoglobin 25.9pg (27.0-35.0) Mean Corpuscular Hemoglobin Concent 32.0% (32.0-37.0) Red Cell Distribution Width 14.0% (12.3-15.4) Platelet Count 255bil/L (150-400) Neutrophils (%) (Auto) 85.9% (40-74) Lymphocytes (%) (Auto) 7.3% (14-46) Monocytes (%) (Auto) 6.4% (4-12) Eosinophils (%) (Auto) 0% (0-5) Basophils (%) (Auto) 0.1% (0-3) Sodium Level 138mEq/L (134-144) Potassium Level 5.1mEq/L (3.5-5.2) Chloride Level 101mEq/L (97-108) Carbon Dioxide Level 17mmol/L (18-29) Blood Urea Nitrogen 30mg/dL (8-27) Creatinine 1.79mg/dL (0.57-1.00) Estimat Glomerular Filtration Rate 39mL/min (>59) Glucose Level 175mg/dL (60-99) Calcium Level 8.7mg/dL (8.5-10.1) Total Bilirubin 0.6mg/dL (0.0-1.2) Aspartate Amino Transf (AST/SGOT) 178U/L (0-50) Alanine Aminotransferase (ALT/SGPT) 50U/L (0-32) Alkaline Phosphatase 117U/L (25-165) Total Protein 6.6g/dL (6.4-8.4) Albumin 3.4g/dL (3.4-5.0) Procalcitonin 8.63ng/mL (0.00-0.08) Discharge Medications Discharge Medications Morphine Sulfate Oral Soln (Morphine Sulfate Oral Soln) 10 Mg/5 Ml Solution 2 MG PO QID Prescribed by: KENRICK COLÓN MD Quetiapine Fumarate (Quetiapine Fumarate) 25 Mg Tablet 6.25 MG PO HS Prescribed by: KENRICK COLÓN MD oxyCODONE (oxyCODONE) 5 Mg/5 Ml Solution 5 MG PO Q6H Prescribed by: BRIAN OMALLEY MD As needed ([Bisacodyl]) 10 MG SUPP 10 MG RC DAILY PRN PRN See Dose Instructions Prescribed by: BRIAN OMALLEY MD ([Artificial Tears]) 15 DROP/ML SOLUTION 1 DROP AFFECT_EYE Q1H PRN PRN dry eyes Prescribed by: KENRICK COLÓN MD Haloperidol Lactate (Haloperidol Lactate) 2 Mg/1 Ml Oral.conc 1 MG PO Q3H PRN PRN NAUSEA,AGITATION Prescribed by: BRIAN OMALLEY MD Quetiapine Fumarate (Quetiapine Fumarate) 25 Mg Tablet 6.25 MG PO Q8H PRN PRN For Agitation Prescribed by: KENRICK COLÓN MD Sennosides (Senna) 8.6 Mg Tablet 17.2 MG PO BID PRN PRN For Constipation Prescribed by: BRIAN OMALLEY MD Sennosides/Docusate Sodium (Senna-Docusate Sodium Tablet) 1 Each Tablet 1 EACH PO BID PRN PRN scheduled take twice a day scheduled to prevent constipation Prescribed by: KENRICK COLÓN MD oxyCODONE (oxyCODONE) 5 Mg/5 Ml Solution 5-10 MG PO Q1H PRN PRN For Severe Pain Prescribed by: BRIAN TALEGHANI, MD Followup Plan Disposition: Home with hospice Follow-up plan 1. Followup with hospice as planned 2. Followup with primary care provider as needed Discharge Diet: No restrictions Discharge Activity: No restrictions Patient Instructions Hospice to continue with comfort care only Time spent 30 minutes including coordinating care for discharge home with home hospice Brian Omalley Jun 25, 2016 15:11
== END 2016-06-25 11:37 | disposition hospice, home (50) | DRG 689 ==
LOC: SED 12:13 → MPC 15:46
PROVIDERS: ADMIT Hospitalist; ATTEND Hospitalist
DX: N39.0 Urinary tract infection, site not specified (principal); J96.01 Acute respiratory failure with hypoxia; R10.11 Right upper quadrant pain; F03.90 Unspecified dementia, unspecified severity, without behavioral disturbance, psychotic disturbance, mood disturbance, and anxiety; I25.10 Atherosclerotic heart disease of native coronary artery without angina pectoris; Z66 Do not resuscitate; M48.06 Spinal stenosis, lumbar region; E11.65 Type 2 diabetes mellitus with hyperglycemia; I12.9 Hypertensive chronic kidney disease with stage 1 through stage 4 chronic kidney disease, or unspecified chronic kidney disease; N18.9 Chronic kidney disease, unspecified; F41.8 Other specified anxiety disorders; Z51.5 Encounter for palliative care